=== PATIENT | female | born 1975 | race Hispanic/Latino ===

== ENCOUNTER → 2022-04-04 14:03 | Outpatient (CLI) | payer MEDICARE, MEDICAID, SELFPAY | PROVIDERS: PCP Physician Assistant Medical; Referring Provider Podiatrist; Visit Provider Family Medicine | DX: E11.621 Type 2 diabetes mellitus with foot ulcer (principal); L97.522 Non-pressure chronic ulcer of other part of left foot with fat layer exposed; L97.524 Non-pressure chronic ulcer of other part of left foot with necrosis of bone; L97.512 Non-pressure chronic ulcer of other part of right foot with fat layer exposed; M86.272 Subacute osteomyelitis, left ankle and foot; E11.40 Type 2 diabetes mellitus with diabetic neuropathy, unspecified; Z87.891 Personal history of nicotine dependence; Z79.4 Long term (current) use of insulin; Z79.84 Long term (current) use of oral hypoglycemic drugs | CPT/HCPCS: 11042; 87070; 87075; 87205; 99204; 99213 ==

== ENCOUNTER → 2022-04-05 12:28 | Outpatient (CLI) | payer MEDICARE, MEDICAID, SELFPAY ==
[2022-04-05 14:00] LABS: Add Manual Diff / Slide Review NO; Basophils Absolute Auto 100 /uL (0-100); Basophils Percent Auto 1.2 % (0-2); Eosinophils Absolute Auto 400 /uL (0-450); Eosinophils Percent Auto 4.8 % (2-4); Hematocrit 33.5 % (36-46); Hemoglobin 11.4 g/dL (12.0-16.0); Lymphocytes Absolute Auto 2900 /uL (1100-4500); Lymphocytes Percent Auto 31.3 % (25-40); Mean Corpuscular HGB Conc 33.9 % (30-36); Mean Corpuscular Hemoglobin 27.6 PG (26-34); Mean Corpuscular Volume 81.4 fL (80-100); Monocytes Absolute Auto 500 /uL (0-900); Monocytes Percent Auto 4.9 % (3-14); Neutrophils Absolute Auto 5400 /uL (1500-7000); Neutrophils Percent Auto 57.8 % (50-75); Platelet Count 318 X10^3/uL (150-400); Red Blood Cell Count 4.11 X10^6/uL (4.0-5.2); Red Cell Distribution Width 13.6 % (11.6-14.8); White Blood Cell Count 9.3 X10^3/uL (4.5-11.0)
[2022-04-05 14:44] LABS: Erythrocyte Sedimentation Rate 80 MM/HR (0-20)
[2022-04-05 15:45] LABS: Alanine Aminotransferase 48 IU/L (<35); Alkaline Phosphatase 99 U/L (38-126); Aspartate Aminotransferase 43 IU/L (14-36); BUN Creatinine Ratio 18.3 (6-22); Bilirubin Total 0.3 mg/dL (0.2-1.3); Blood Urea Nitrogen 19 mg/dL (7-17); Carbon Dioxide 30 mmol/L (22-32); Chloride 105 mmol/L (98-107); Estimated Glomerular Filt Rate > 60 mL/min (>60); Glucose 195 mg/dL (70-100); HEMOLYSIS < 15 (0-50); Potassium 4.2 mmol/L (3.4-5.1); Sodium 140 mmol/L (137-145)
[2022-04-05 16:21] LABS: Hemoglobin A1C% w Est Avg Glu 10.2 % (4.0-6.0)
== END ==
PROVIDERS: PCP Physician Assistant Medical; Referring Provider Family Medicine; Visit Provider Family Medicine
DX: L08.9 Local infection of the skin and subcutaneous tissue, unspecified (principal)
CPT/HCPCS: 36415; 80053; 83036; 85025; 85651; 86140

== ENCOUNTER → 2022-04-16 14:05 | Outpatient (CLI) | payer MEDICARE, MEDICAID, SELFPAY | PROVIDERS: PCP Physician Assistant Medical; Referring Provider Podiatrist; Visit Provider Family Medicine | DX: E11.621 Type 2 diabetes mellitus with foot ulcer (principal); L97.522 Non-pressure chronic ulcer of other part of left foot with fat layer exposed; E11.40 Type 2 diabetes mellitus with diabetic neuropathy, unspecified | CPT/HCPCS: 11042; 99213 ==

== ENCOUNTER → 2022-04-23 14:48 | Outpatient (CLI) | payer MEDICARE, MEDICAID, SELFPAY | PROVIDERS: PCP Physician Assistant Medical; Referring Provider Physician Assistant Medical; Visit Provider Family Medicine | DX: E11.621 Type 2 diabetes mellitus with foot ulcer (principal); L97.522 Non-pressure chronic ulcer of other part of left foot with fat layer exposed | CPT/HCPCS: 99213 ==

== ENCOUNTER → 2022-04-30 13:33 | Outpatient (CLI) | payer MEDICARE, MEDICAID, SELFPAY | PROVIDERS: PCP Physician Assistant Medical; Referring Provider Physician Assistant Medical; Visit Provider Family Medicine | DX: E11.621 Type 2 diabetes mellitus with foot ulcer (principal); L97.522 Non-pressure chronic ulcer of other part of left foot with fat layer exposed; E11.40 Type 2 diabetes mellitus with diabetic neuropathy, unspecified; F17.210 Nicotine dependence, cigarettes, uncomplicated; D64.9 Anemia, unspecified | CPT/HCPCS: 97597 ==

== ENCOUNTER → 2022-05-06 14:58 | Outpatient (CLI) | payer MEDICARE, MEDICAID, SELFPAY | PROVIDERS: PCP Physician Assistant Medical; Referring Provider Physician Assistant Medical; Visit Provider Family Medicine | DX: E11.621 Type 2 diabetes mellitus with foot ulcer (principal); L97.522 Non-pressure chronic ulcer of other part of left foot with fat layer exposed; E11.42 Type 2 diabetes mellitus with diabetic polyneuropathy; Z87.891 Personal history of nicotine dependence; R20.9 Unspecified disturbances of skin sensation | CPT/HCPCS: 97597; 99213 ==

== ENCOUNTER → 2022-05-13 14:05 | Outpatient (CLI) | payer MEDICARE, MEDICAID, SELFPAY | PROVIDERS: PCP Physician Assistant Medical; Referring Provider Physician Assistant Medical; Visit Provider Family Medicine | DX: E11.42 Type 2 diabetes mellitus with diabetic polyneuropathy (principal); Z86.31 Personal history of diabetic foot ulcer | CPT/HCPCS: 99212 ==

== ENCOUNTER 2022-09-24 18:28 | Emergency (ER) | payer MEDICARE, MEDICAID, SELFPAY ==
[2022-09-24] VITALS (24 sets, daily range): BP systolic 82–132; BP diastolic 53–69; PULSE 93–107; RESP 17–24; TEMP 36.6; O2SAT 93–97; BMI 28.1
--- NOTE | 2022-09-24 19:22 | ED_ITS ---
HPI - Abdominal Pain General Chief Complaint: Abdominal Pain Stated Complaint: constipated for 3 days, not sleeping Time Seen by Provider: 09/24/22 19:18 Source: patient Mode of arrival: Family Vehicle History of Present Illness HPI narrative: 47F smoker with history of IDDM presetns with chief complaint of feeling a bit unwell for the past 3 days. She has had constipation for three days and has felt weak and lightheaded and even fell down once. She states she suffered no injury as a consequence of her fall. She denies any change in medications or diet. She is not currently dizzy or lightheaded. She denies any runny nose, sore th roat or cough. She has no chest pain or shortness of breath. She denies vomiting but has been somewhat nauseated. She denies diarrhea but states she is been having difficulty producing urine. Related Data Allergies Allergy/AdvReac Type Severity Reaction Status Date / Time No Known Drug Allergies Allergy Verified 09/24/22 19:10 Review of Systems Review of Systems Narrative: GENERAL: See HPI HEENT: Denies sinus pain, ear pain, sore throat, difficulty swallowing, dizziness. RESPIRATORY: Denies dyspnea, cough, wheezing, hemoptysis, sputum. CARDIOVASCULAR: Denies chest pain, palpitations, orthopnea, edema, GASTROINTESTINAL: See HPI : Denies dysuria, frequency, incontinence, hematuria, urinary retention. MUSCULOSKELETAL: denies weakness, joint pain, or bony pain SKIN: Denies rash, skin lesions, or other NEUROLOGIC: See HPI PSYCHIATRIC: No concerning psychosocial issues. 12 point review of systems is negative except for those stated above Patient History Social History Smoking Status: Current every day smoker Smoking Status: Current every day smoker tobacco type: cigarettes Substance Use Type: does not use Exam Narrative Exam Narrative: GENERAL: [47] year old patient appears older than stated age. Well-developed patient, in mild distress. Appears to feel unwell HEAD: Atraumatic. Normocephalic. EYES: Pupils equal round and reactive. Extraocular motions intact. No scleral icterus. No injection or drainage. ENT: Nose without bleeding, purulent drainage. Throat without erythema, tonsillar hypertrophy or exudate. Airway patent. NECK: Trachea midline. Non tender CARDIOVASCULAR: Regular rate and rhythm without murmurs, gallops, or rubs. RESPIRATORY: Clear to auscultation. Breath sounds equal bilaterally. No wheezes, rales, or rhonchi. GASTROINTESTINAL: Abdomen soft, slight generalized tenderness, bowel sounds present. EXTREMITIES: No edema or joint tenderness. BACK: Nontender without deformity or crepitance. No flank tenderness. NEURO: AOx3. SKIN: No rash or erythema of visible areas Initial Vital Signs Initial Vital Signs: Vital Signs Temperature 97.8 F 09/24/22 19:06 Pulse Rate 101 H 09/24/22 19:06 Respiratory Rate 20 09/24/22 19:06 Blood Pressure 82/53 L 09/24/22 19:06 Pulse Oximetry 97 09/24/22 19:06 Oxygen Delivery Method 09/24/22 19:06 Course Course Course Narrative: urinary retention noted, sandoval placed, 1400mL urine out, patient with signific ant improvement in pain Orders Ordered: ED Orders 09/24/22 19:05 C-Reactive Protein Quant Stat Complete Blood Count AUTO DIFF Stat Comprehensive Metabolic Panel Stat Erythrocyte Sedimentation Rate Stat Ethanol (ETOH) Stat Lactate (Lactic Acid) Stat Lipase Stat Lipase Stat Magnesium Stat NT-proBNP (BNP-Adult 18+) Stat Prothrombin Time INR Stat Troponin & CK Cardiac Panel Stat 09/24/22 19:22 XR acute abdomen series Stat EKG-12 Lead Stat 09/24/22 19:51 Test Serum,Qual Stat 09/24/22 20:21 CT chest abd pel w con Stat 09/24/22 20:53 Blood Culture Stat 09/24/22 21:40 Urinalysis and Microscopic Stat Urine Drug Screen, Rapid Stat Discontinued Medications Sodium Chloride (Normal Saline 0.9%) 1,000 mls @ 1,000 mls/hr IV BOLUS ONE Stop: 09/24/22 21:21 Last Infusion: 09/24/22 21:22 Dose: 0 mls/hr Documented By: Admin: 09/24/22 20:29 Dose: 1,000 mls/hr Documented By: AKILAH Ondansetron HCl (Ondansetron 4 Mg Odt) 4 mg PO NOW PRN PRN Reason: Nausea And Vomiting Ondansetron HCl (Ondansetron 4 Mg/2 Ml Inj) 4 mg IV NOW PRN PRN Reason: Nausea And Vomiting Vital Signs Vital signs: Vital Signs - 8 hr 09/24/22 19:20 09/24/22 19:21 09/24/22 19:25 Pulse Rate 103 H 100 H Respiratory Rate 19 Blood Pressure 110/64 Pulse Oximetry 96 93 Oxygen Delivery Method Room Air 09/24/22 19:25 09/24/22 19:30 09/24/22 19:30 Pulse Rate 101 H Respiratory Rate 23 Blood Pressure 114/58 L 115/61 Pulse Oximetry 94 Oxygen Delivery Method 09/24/22 19:35 09/24/22 19:35 09/24/22 19:40 Pulse Rate 103 H Respiratory Rate 22 Blood Pressure 120/66 111/60 Pulse Oximetry 93 Oxygen Delivery Method 09/24/22 19:40 09/24/22 19:56 09/24/22 20:00 Pulse Rate 104 H 105 H 102 H Respiratory Rate 24 20 Blood Pressure Pulse Oximetry 94 95 95 Oxygen Delivery Method 09/24/22 20:15 09/24/22 20:28 09/24/22 20:28 Pulse Rate 102 H 100 H Respiratory Rate 20 17 Blood Pressure 103/69 Pulse Oximetry 96 96 Oxygen Delivery Method Room Air 09/24/22 20:30 09/24/22 20:30 09/24/22 20:35 Pulse Rate 101 H 104 H Respiratory Rate 22 22 Blood Pressure 118/63 Pulse Oximetry 95 95 Oxygen Delivery Method 09/24/22 20:35 09/24/22 20:40 09/24/22 20:40 Pulse Rate 104 H Respiratory Rate 21 Blood Pressure 119/66 121/66 Pulse Oximetry 95 Oxygen Delivery Method 09/24/22 20:45 09/24/22 20:45 09/24/22 21:00 Pulse Rate 107 H 105 H Respiratory Rate 22 21 Blood Pressure 119/64 Pulse Oximetry 95 96 Oxygen Delivery Method 09/24/22 21:15 09/24/22 21:37 09/24/22 21:38 Pulse Rate 101 H 100 H 99 H Respiratory Rate 20 20 Blood Pressure Pulse Oximetry 97 97 96 Oxygen Delivery Method Room Air 09/24/22 21:38 09/24/22 21:45 09/24/22 22:00 Pulse Rate 99 H Respiratory Rate 20 Blood Pressure 132/66 115/56 L Pulse Oximetry 96 Oxygen Delivery Method 09/24/22 22:00 09/24/22 22:15 09/24/22 22:30 Pulse Rate 94 H 96 H 93 H Respiratory Rate 20 18 20 Blood Pressure Pulse Oximetry 96 96 95 Oxygen Delivery Method 09/24/22 22:31 09/24/22 22:31 Pulse Rate 93 H Respiratory Rate 20 Blood Pressure 101/54 L Pulse Oximetry 95 Oxygen Delivery Method MDM - Abdominal Pain Lab Data 09/24/22 19:05 09/24/22 19:05 Labs: Lab Results 09/24/22 09/24/22 09/24/22 Range/Units 19:05 19:05 19:05 WBC 16.0 H (4.5-11.0) X10^3/uL RBC 4.40 (4.0-5.2) X10^6/uL Hgb 12.4 (12.0-16.0) g/dL Hct 36.8 (36-46) % MCV 83.5 (80-100) fL MCH 28.1 (26-34) PG MCHC 33.7 (30-36) % RDW 12.9 (11.6-14.8) % Plt Count 381 (150-400) X10^3/uL Neut % (Auto) 72.8 (50-75) % Lymph % (Auto) 20.6 L (25-40) % Brantley % (Auto) 5.1 (3-14) % Eos % (Auto) 0.8 L (2-4) % Baso % (Auto) 0.7 (0-2) % Neut # (Auto) 84461 H (4508-8374) /uL Lymph # (Auto) 3300 (6252-1507) /uL Brantley # (Auto) 800 (0-900) /uL Eos # (Auto) 100 (0-450) /uL Baso # (Auto) 100 (0-100) /uL ESR 81 H (0-20) MM/HR PT (10.1-12.7) SECONDS INR (0.9-1.3) Sodium 139 (137-145) mmol/L Potassium 4.6 (3.4-5.1) mmol/L Chloride 102 (98-107) mmol/L Carbon Dioxide 28 (22-32) mmol/L BUN 25 H (7-17) mg/dL Creatinine 0.99 (0.52-1.04) mg/dL Estimated GFR > 60 (>60) mL/min BUN/Creatinine Ratio 25.3 H (6-22) Glucose 120 H (70-100) mg/dL Lactate (0.7-2.1) mmol/L Calcium 9.1 (8.4-10.2) mg/dL Magnesium (1.6-2.3) mg/dL Total Bilirubin 0.7 (0.2-1.3) mg/dL AST 27 (14-36) IU/L ALT 24 (<35) IU/L Alkaline Phosphatase 138 H (38-126) U/L Total Creatine Kinase (30-135) U/L CK-MB (CK-2) CK-MB (CK-2) Rel Index Troponin I (0.01-0.034) ng/mL C-Reactive Protein (<1.0) mg/dL NT-Pro-B Natriuret Pep (<125) pg/mL Total Protein 8.4 H (6.3-8.2) g/dL Albumin 4.2 (3.5-5.0) g/dL Globulin 4.2 H (1.7-4.1) g/dL Albumin/Globulin Ratio 1.0 (1.0-2.8) Lipase 186 (23-300) U/L Serum , Qual (Negative) Urine Color Urine Appearance Urine pH (4.5-8.0) Ur Specific Sandwich (1.000-1.035) Urine Protein (Negative) Urine Glucose (UA) (Negative) g/dL Urine Ketones (NEGATIVE) Urine Occult Blood (Negative) Urine Nitrate (Negative) Urine Bilirubin (NEGATIVE) Urine Urobilinogen (0.2) E.U./dL Ur Leukocyte Esterase (NEGATIVE) Urine RBC (0-5/HPF) Urine WBC (0-5/HPF) Ur Squamous Epith Cells (0-5/HPF) Urine Bacteria (None) Ur Culture Indicated? U Opiates 300ng/mL cut (Negative) Ur Oxycodone Screen (Negative) Urine Methadone Screen (Negative) Ur Barbiturates Screen (Negative) U Tricyclic Antidepress (Negative) Ur Phencyclidine Scrn (Negative) Ur Amphetamines Screen (Negative) U Methamphetamines Scrn (Negative) Ur MDMA Scrn (Ecstasy) (Negative) U Benzodiazepines Scrn (Negative) Urine Cocaine Screen (Negative) U Marijuana (THC) Screen (Negative) Ethyl Alcohol ( - 10) mg/dL 09/24/22 09/24/22 09/24/22 Range/Units 19:05 19:05 19:05 WBC (4.5-11.0) X10^3/uL RBC (4.0-5.2) X10^6/uL Hgb (12.0-16.0) g/dL Hct (36-46) % MCV (80-100) fL MCH (26-34) PG MCHC (30-36) % RDW (11.6-14.8) % Plt Count (150-400) X10^3/uL Neut % (Auto) (50-75) % Lymph % (Auto) (25-40) % Brantley % (Auto) (3-14) % Eos % (Auto) (2-4) % Baso % (Auto) (0-2) % Neut # (Auto) (0664-9064) /uL Lymph # (Auto) (9856-7896) /uL Brantley # (Auto) (0-900) /uL Eos # (Auto) (0-450) /uL Baso # (Auto) (0-100) /uL ESR (0-20) MM/HR PT 12.7 (10.1-12.7) SECONDS INR 1.1 (0.9-1.3) Sodium (137-145) mmol/L Potassium (3.4-5.1) mmol/L Chloride (98-107) mmol/L Carbon Dioxide (22-32) mmol/L BUN (7-17) mg/dL Creatinine (0.52-1.04) mg/dL Estimated GFR (>60) mL/min BUN/Creatinine Ratio (6-22) Glucose (70-100) mg/dL Lactate 1.2 (0.7-2.1) mmol/L Calcium (8.4-10.2) mg/dL Magnesium 2.2 (1.6-2.3) mg/dL Total Bilirubin (0.2-1.3) mg/dL AST (14-36) IU/L ALT (<35) IU/L Alkaline Phosphatase (38-126) U/L Total Creatine Kinase (30-135) U/L CK-MB (CK-2) CK-MB (CK-2) Rel Index Troponin I (0.01-0.034) ng/mL C-Reactive Protein 2.3 H (<1.0) mg/dL NT-Pro-B Natriuret Pep 59 (<125) pg/mL Total Protein (6.3-8.2) g/dL Albumin (3.5-5.0) g/dL Globulin (1.7-4.1) g/dL Albumin/Globulin Ratio (1.0-2.8) Lipase 185 (23-300) U/L Serum , Qual (Negative) Urine Color Urine Appearance Urine pH (4.5-8.0) Ur Specific Sandwich (1.000-1.035) Urine Protein (Negative) Urine Glucose (UA) (Negative) g/dL Urine Ketones (NEGATIVE) Urine Occult Blood (Negative) Urine Nitrate (Negative) Urine Bilirubin (NEGATIVE) Urine Urobilinogen (0.2) E.U./dL Ur Leukocyte Esterase (NEGATIVE) Urine RBC (0-5/HPF) Urine WBC (0-5/HPF) Ur Squamous Epith Cells (0-5/HPF) Urine Bacteria (None) Ur Culture Indicated? U Opiates 300ng/mL cut (Negative) Ur Oxycodone Screen (Negative) Urine Methadone Screen (Negative) Ur Barbiturates Screen (Negative) U Tricyclic Antidepress (Negative) Ur Phencyclidine Scrn (Negative) Ur Amphetamines Screen (Negative) U Methamphetamines Scrn (Negative) Ur MDMA Scrn (Ecstasy) (Negative) U Benzodiazepines Scrn (Negative) Urine Cocaine Screen (Negative) U Marijuana (THC) Screen (Negative) Ethyl Alcohol ( - 10) mg/dL 09/24/22 09/24/22 09/24/22 Range/Units 19:05 19:05 19:51 WBC (4.5-11.0) X10^3/uL RBC (4.0-5.2) X10^6/uL Hgb (12.0-16.0) g/dL Hct (36-46) % MCV (80-100) fL MCH (26-34) PG MCHC (30-36) % RDW (11.6-14.8) % Plt Count (150-400) X10^3/uL Neut % (Auto) (50-75) % Lymph % (Auto) (25-40) % Brantley % (Auto) (3-14) % Eos % (Auto) (2-4) % Baso % (Auto) (0-2) % Neut # (Auto) (9509-7342) /uL Lymph # (Auto) (8756-9617) /uL Brantley # (Auto) (0-900) /uL Eos # (Auto) (0-450) /uL Baso # (Auto) (0-100) /uL ESR (0-20) MM/HR PT (10.1-12.7) SECONDS INR (0.9-1.3) Sodium (137-145) mmol/L Potassium (3.4-5.1) mmol/L Chloride (98-107) mmol/L Carbon Dioxide (22-32) mmol/L BUN (7-17) mg/dL Creatinine (0.52-1.04) mg/dL Estimated GFR (>60) mL/min BUN/Creatinine Ratio (6-22) Glucose (70-100) mg/dL Lactate (0.7-2.1) mmol/L Calcium (8.4-10.2) mg/dL Magnesium (1.6-2.3) mg/dL Total Bilirubin (0.2-1.3) mg/dL AST (14-36) IU/L ALT (<35) IU/L Alkaline Phosphatase (38-126) U/L Total Creatine Kinase 45 (30-135) U/L CK-MB (CK-2) TNP CK-MB (CK-2) Rel Index TNP Troponin I < 0.012 (0.01-0.034) ng/mL C-Reactive Protein (<1.0) mg/dL NT-Pro-B Natriuret Pep (<125) pg/mL Total Protein (6.3-8.2) g/dL Albumin (3.5-5.0) g/dL Globulin (1.7-4.1) g/dL Albumin/Globulin Ratio (1.0-2.8) Lipase (23-300) U/L Serum , Qual Negative (Negative) Urine Color Urine Appearance Urine pH (4.5-8.0) Ur Specific Sandwich (1.000-1.035) Urine Protein (Negative) Urine Glucose (UA) (Negative) g/dL Urine Ketones (NEGATIVE) Urine Occult Blood (Negative) Urine Nitrate (Negative) Urine Bilirubin (NEGATIVE) Urine Urobilinogen (0.2) E.U./dL Ur Leukocyte Esterase (NEGATIVE) Urine RBC (0-5/HPF) Urine WBC (0-5/HPF) Ur Squamous Epith Cells (0-5/HPF) Urine Bacteria (None) Ur Culture Indicated? U Opiates 300ng/mL cut (Negative) Ur Oxycodone Screen (Negative) Urine Methadone Screen (Negative) Ur Barbiturates Screen (Negative) U Tricyclic Antidepress (Negative) Ur Phencyclidine Scrn (Negative) Ur Amphetamines Screen (Negative) U Methamphetamines Scrn (Negative) Ur MDMA Scrn (Ecstasy) (Negative) U Benzodiazepines Scrn (Negative) Urine Cocaine Screen (Negative) U Marijuana (THC) Screen (Negative) Ethyl Alcohol < 10 ( - 10) mg/dL 09/24/22 09/24/22 Range/Units 21:40 21:40 WBC (4.5-11.0) X10^3/uL RBC (4.0-5.2) X10^6/uL Hgb (12.0-16.0) g/dL Hct (36-46) % MCV (80-100) fL MCH (26-34) PG MCHC (30-36) % RDW (11.6-14.8) % Plt Count (150-400) X10^3/uL Neut % (Auto) (50-75) % Lymph % (Auto) (25-40) % Brantley % (Auto) (3-14) % Eos % (Auto) (2-4) % Baso % (Auto) (0-2) % Neut # (Auto) (6459-3101) /uL Lymph # (Auto) (3232-2142) /uL Brantley # (Auto) (0-900) /uL Eos # (Auto) (0-450) /uL Baso # (Auto) (0-100) /uL ESR (0-20) MM/HR PT (10.1-12.7) SECONDS INR (0.9-1.3) Sodium (137-145) mmol/L Potassium (3.4-5.1) mmol/L Chloride (98-107) mmol/L Carbon Dioxide (22-32) mmol/L BUN (7-17) mg/dL Creatinine (0.52-1.04) mg/dL Estimated GFR (>60) mL/min BUN/Creatinine Ratio (6-22) Glucose (70-100) mg/dL Lactate (0.7-2.1) mmol/L Calcium (8.4-10.2) mg/dL Magnesium (1.6-2.3) mg/dL Total Bilirubin (0.2-1.3) mg/dL AST (14-36) IU/L ALT (<35) IU/L Alkaline Phosphatase (38-126) U/L Total Creatine Kinase (30-135) U/L CK-MB (CK-2) CK-MB (CK-2) Rel Index Troponin I (0.01-0.034) ng/mL C-Reactive Protein (<1.0) mg/dL NT-Pro-B Natriuret Pep (<125) pg/mL Total Protein (6.3-8.2) g/dL Albumin (3.5-5.0) g/dL Globulin (1.7-4.1) g/dL Albumin/Globulin Ratio (1.0-2.8) Lipase (23-300) U/L Serum , Qual (Negative) Urine Color Yellow Urine Appearance Clear Urine pH 5.5 (4.5-8.0) Ur Specific Sandwich 1.025 (1.000-1.035) Urine Protein Trace H (Negative) Urine Glucose (UA) Negative (Negative) g/dL Urine Ketones Negative (NEGATIVE) Urine Occult Blood Negative (Negative) Urine Nitrate Negative (Negative) Urine Bilirubin Negative (NEGATIVE) Urine Urobilinogen 0.2 (0.2) E.U./dL Ur Leukocyte Esterase Negative (NEGATIVE) Urine RBC 0-1/hpf (0-5/HPF) Urine WBC 0-1/hpf (0-5/HPF) Ur Squamous Epith Cells 0-1 /hpf (0-5/HPF) Urine Bacteria None seen (None) Ur Culture Indicated? Cult not indicated U Opiates 300ng/mL cut Negative (Negative) Ur Oxycodone Screen Negative (Negative) Urine Methadone Screen Negative (Negative) Ur Barbiturates Screen Negative (Negative) U Tricyclic Antidepress Negative (Negative) Ur Phencyclidine Scrn Negative (Negative) Ur Amphetamines Screen Negative (Negative) U Methamphetamines Scrn Negative (Negative) Ur MDMA Scrn (Ecstasy) Negative (Negative) U Benzodiazepines Scrn Negative (Negative) Urine Cocaine Screen Negative (Negative) U Marijuana (THC) Screen Negative (Negative) Ethyl Alcohol ( - 10) mg/dL Imaging Data Abdominal x-ray: Radiologist's Impression: [address] [address] XRay Report Signed Patient: Maryanne Amado MR#: [id number] : 1975 Acct:[id number] Age/Sex: 47 / F Date of Service: 09/24/22 Loc: ED Accession Number: [id number] ?? Procedure: XR acute abdomen series Ordering Provider: Westley Rodriguez D.O. PROCEDURE:? XR ACUTE ABDOMEN SERIES ? INDICATIONS:? Abdominal pain ? TECHNIQUE:? One view chest and two views of the abdomen were acquired.? ? COMPARISON:? None. ? FINDINGS:? ? Surgical changes and devices:? None.? ? Chest:? Lungs are clear.? Heart size is normal.? No pleural effusions.? No pneumoperitoneum.? ? Abdomen:? There is a large amount of stool in left colon.? Bowel gas pattern is normal.? No suspicious calcifications.? Visualized solid organ contours appear normal.? ? Bones:? No suspicious bony lesions.? ? IMPRESSION:? ? 1. A large amount of stool in left colon suggesting severe constipation. ? ? Dictated by: Milton Harrell M.D. on 09/24/2022 at 20:00 ? ? Approved by: Milton Harrell M.D. on 09/24/2022 at 20:01 ? MDM Narrative Medical decision making narrative: CC: 47F presents with decreased bowel movements for the past few days Complicating co-morbidities: None known Data collected from: Patient Medical records reviewed: None available in our EMR Differential considered, but not limited to: Bowel obstruction, kidney stone, appendicitis, urine infection versus other Exam documented above, pertinent findings include: Abdominal fullness and generalized tenderness but no peritoneal signs, rebound or guarding. Bowel sounds present. Lab Test results independently reviewed as above. Pertinent findings: Elevated white blood cell count of unclear significance, patient has no fever or other signs of infection. No signs of anemia. Electrolytes and renal function within normal range. Inflammatory markers elevated, unclear significance. Independently reviewed EKG as above Imaging studies independently reviewed: Large stool burden, no sign of obstruction Treatments: Zofran and fluids as well as Sandoval catheter placement, patient has significant if not complete resolution of symptoms after the steps Re-evaluations: See above Discussion: 47-year-old female with a few days of decreased bowel movements, abdominal cramping had trouble urinating. She is found to have urinary retention with postvoid residual measuring greater than 1 L on ultrasound, Sandoval catheter placed at 1400 cc out. Patient with tremendous improvement after this step. Imaging suggest large stool burden but no other significant findings suc h as obstruction, pneumonia or other. Patient given extensive discussion regarding return precautions, as well as treatment of constipation. She has had questions answered to her apparent satisfaction Disposition: see below, along with detailed discharge instructions that have been reviewed with patient as well as indications for ED re-evaluation and additional outpatient follow up Discharge Plan Departure Patient Disposition: Home Clinical Impression: Abdominal pain, Constipation, Acute urinary retention Instructions: DI for Constipation, DI for Urinary Retention in Women Activity Restrictions/Additional Instructions: *You have been diagnosed with [ abdominal pain due to constipation and associated urinary retention. As we discussed your labs are very reassuring and imaging demonstrates constipation but no signs of bowel obstruction, infection or other significant abnormality.] *What to do: *Take over the counter medications as directed: 1. Metamucil - is a bulk forming laxative and adds fiber 2. Colace - softens your stool 3. Dulcolax suppository - stimulates your bowels *Follow up with your primary care provider in 2-3 days, call for appointment * also, as we discussed you will have the urinary catheter in place for the next few days, I have given you contact information for the local urology office, please call tomorrow, let them know you were seen in the emergency department and we would like you seen in follow-up. Traditionally they will see you in the office and remove the catheter there, observed for few hours and ensure that you can urinate on her own and then send you home *Return to ER if you should have any new, worsening or concerning symptoms *Drink plenty of water and eat foods high in fiber *Stay as active as you can as this helps move your bowels as well Referrals: Gena Weiner MD [Physician] - Yolande Oneal PA-C [Primary Care Provider] - Stand Alone Forms: Patient Portal/API
--- NOTE | 2022-09-24 19:22 | DI.RAD.S_ITS ---
PROCEDURE: XR ACUTE ABDOMEN SERIES INDICATIONS: Abdominal pain TECHNIQUE: One view chest and two views of the abdomen were acquired. COMPARISON: None. FINDINGS: Surgical changes and devices: None. Chest: Lungs are clear. Heart size is normal. No pleural effusions. No pneumoperitoneum. Abdomen: There is a large amount of stool in left colon. Bowel gas pattern is normal. No suspicious calcifications. Visualized solid organ contours appear normal. Bones: No suspicious bony lesions. IMPRESSION: 1. A large amount of stool in left colon suggesting severe constipation. Dictated by: Milton Harrell M.D. on 09/24/2022 at 20:00 Approved by: Milton Harrell M.D. on 09/24/2022 at 20:01
[2022-09-24 19:34] LABS: Add Manual Diff / Slide Review NO; Basophils Absolute Auto 100 /uL (0-100); Basophils Percent Auto 0.7 % (0-2); Eosinophils Absolute Auto 100 /uL (0-450); Eosinophils Percent Auto 0.8 % (2-4); Hematocrit 36.8 % (36-46); Hemoglobin 12.4 g/dL (12.0-16.0); Lymphocytes Absolute Auto 3300 /uL (1100-4500); Lymphocytes Percent Auto 20.6 % (25-40); Mean Corpuscular HGB Conc 33.7 % (30-36); Mean Corpuscular Hemoglobin 28.1 PG (26-34); Mean Corpuscular Volume 83.5 fL (80-100); Monocytes Absolute Auto 800 /uL (0-900); Monocytes Percent Auto 5.1 % (3-14); Neutrophils Absolute Auto 11700 /uL (1500-7000); Neutrophils Percent Auto 72.8 % (50-75); Platelet Count 381 X10^3/uL (150-400); Red Cell Distribution Width 12.9 % (11.6-14.8)
[2022-09-24 19:42] LABS: INR 1.1 (0.9-1.3); Prothrombin Time 12.7 SECONDS (10.1-12.7)
[2022-09-24 19:55] LABS: Alanine Aminotransferase 24 IU/L (<35); Albumin 4.2 g/dL (3.5-5.0); Alkaline Phosphatase 138 U/L (38-126); Aspartate Aminotransferase 27 IU/L (14-36); BUN Creatinine Ratio 25.3 (6-22); Bilirubin Total 0.7 mg/dL (0.2-1.3); Blood Urea Nitrogen 25 mg/dL (7-17); Calcium 9.1 mg/dL (8.4-10.2); Carbon Dioxide 28 mmol/L (22-32); Chloride 102 mmol/L (98-107); Estimated Glomerular Filt Rate > 60 mL/min (>60); Globulin 4.2 g/dL (1.7-4.1); Glucose 120 mg/dL (70-100); HEMOLYSIS 21 (0-50); Lipase 186 U/L (23-300); Potassium 4.6 mmol/L (3.4-5.1); Sodium 139 mmol/L (137-145); Total Protein 8.4 g/dL (6.3-8.2)
[2022-09-24 19:56] LABS: Creatine Kinase 45 U/L (30-135); Lactate (Lactic Acid) 1.2 mmol/L (0.7-2.1)
[2022-09-24 19:57] LABS: Ethanol (ETOH) < 10 mg/dL
[2022-09-24 19:59] LABS: C-Reactive Protein Quant 2.3 mg/dL (<1.0); Lipase 185 U/L (23-300); Magnesium 2.2 mg/dL (1.6-2.3)
[2022-09-24 20:03] LABS: NT-proBNP (BNP-Adult 18+) 59 pg/mL (<125)
[2022-09-24 20:04] LABS: Erythrocyte Sedimentation Rate 81 MM/HR (0-20)
[2022-09-24 20:07] LABS: Troponin I < 0.012 ng/mL (0.01-0.034)
--- NOTE | 2022-09-24 20:21 | DI.CT.S_ITS ---
PROCEDURE: CT CHEST ABD PEL W CON INDICATIONS: syncope, abdominal pain, ill, weakness TECHNIQUE: After the administration of intravenous contrast, axial sections acquired from the supraclavicular neck to the pubic symphysis. Coronal and sagittal reformats were performed. For radiation dose reduction, the following was used: automated exposure control, adjustment of mA and/or kV according to patient size. COMPARISON: [facility], CR, XR ACUTE ABDOMEN SERIES, 09/24/2022, 19:36. FINDINGS: Image quality: Excellent. CHEST: Lower Neck: No lymphadenopathy by size criteria. Thyroid: There are small bilateral thyroid nodules, measuring up to 1.0 cm in the right lobe. Axillae: No lymphadenopathy by size criteria. Chest Wall: Unremarkable. Lungs and Airways: No acute consolidation. There is mild dependent atelectasis bilaterally. The trachea and central airways are patent. Pleura: No pneumothorax or pleural effusions. Heart: Heart size is normal. No pericardial effusion. Thoracic Vessels: The aorta and pulmonary arteries are normal in size. Mediastinum and Brianna: No lymphadenopathy by size criteria. Esophagus: No wall thickening. No hiatal hernia. ABDOMEN: Liver: No mass lesion. Gallbladder: Within normal limits without calcified gallstones. Biliary ducts: No biliary ductal dilatation. Pancreas: Unremarkable. Spleen: Normal in size. Adrenal Glands: No adrenal nodules. Kidneys and Ureters: There is mild fullness of the renal collecting systems and ureters bilaterally extending to the bladder. No obstructing stones visualized. Stomach and Bowel: Stomach and small bowel loops are normal in caliber and wall thickness. The appendix is normal in appearance. There is colonic stool distention in the distal colon including moderate to marked stool distention in the rectum with mild wall thickening and pericolonic fat stranding suggestive of stercoral colitis. Peritoneum: No abnormal intraperitoneal fluid. No free air. Ventral Wall: No hernia. Abdominal Nodes: No retroperitoneal or mesenteric adenopathy by size criteria. Vessels: Aorta and inferior vena cava are normal in size. PELVIS: Pelvic Organs: Unremarkable. Bladder: There is marked distention of the urinary bladder. Pelvic Nodes: No enlarged lymph nodes. Miscellaneous: No inguinal hernias are seen. Bones: Visualized osseous structures demonstrate no suspicious focal lesions. IMPRESSION: 1. Moderate to marked stool distention in the rectum with associated mild wall thickening and pericolonic fat stranding compatible with stercoral colitis. 2. Associated moderate stool distention demonstrated in the distal colon suggestive of constipation or impaction. No evidence of small-bowel obstruction. 3. Marked bladder distention may reflect urinary tension. 4. Mild fullness of the renal collecting systems and ureters likely secondary to bladder distention. No obstructing stones visualized. Dictated by: Anibal Stoner M.D. on 09/24/2022 at 22:02 Approved by: Anibal Stoner M.D. on 09/24/2022 at 22:08
[2022-09-24] MEDS: SODIUM CHLORIDE 0.9% 1,000 ML 1000 ML IV (20:29)
[2022-09-24 21:12] LABS: Pregnancy Test Serum,Qual Negative (Negative)
[2022-09-24 22:08] LABS: Appearance Urine UA CLEAR; Bilirubin Urine UA NEGATIVE (NEGATIVE); Color Urine UA YELLOW; Glucose Urine UA NEGATIVE (Negative); Ketones Urine UA NEGATIVE (NEGATIVE); Leukocyte Esterase Urine UA NEGATIVE (NEGATIVE); Nitrite Urine UA NEGATIVE (Negative); Occult Blood Urine UA NEGATIVE (Negative); Protein Urine UA TRACE (Negative); Specific Gravity Urine UA 1.025 (1.000-1.035); Urobilinogen Urine UA 0.2 E.U./dL (0.2)
[2022-09-24 22:12] LABS: pH Urine UA 5.5 (4.5-8.0)
[2022-09-24 22:20] LABS: Bacteria Urine None Seen; Culture Indicated Urine Cult Not Indicated; RBC Urine 0-1/HPF (0-5/HPF); Squamous Epithelial Cell Urine 0-1 /HPF (0-5/HPF); WBC Urine 0-1/HPF (0-5/HPF)
[2022-09-24 22:21] LABS: UR Morphine/Opiate cutoff 300 Negative (Negative); Ur Creatinine 20 (Normal); Ur Specific Gravity 1.025 (Normal); Urine Amphetamines Negative (Negative); Urine Barbiturates Negative (Negative); Urine Benzodiazepines Negative (Negative); Urine Cocaine Negative (Negative); Urine MDMA Negative (Negative); Urine Methadone Negative (Negative); Urine Methamphetamines Negative (Negative); Urine Oxycodone Negative (Negative); Urine Phencyclidine Negative (Negative); Urine Tetrahydrocannabinol Negative (Negative); Urine Tricyclic Antidepressant Negative (Negative); Urine pH 5 (Normal)
== END 2022-09-24 22:44 | disposition home or self-care (01) ==
PROVIDERS: Emergency Provider Emergency Medicine; PCP Physician Assistant Medical
DX: R10.9 Unspecified abdominal pain (principal); K59.00 Constipation, unspecified; R33.8 Other retention of urine
CPT/HCPCS: 36415; 71260; 74022; 74177; 80053; 80305; 80320; 81001; 82550; 83605; 83690; 83735; 83880; 84484; 84703; 85025; 85610; 85651; 86140; 87040; 93005; 96360; 99284; Q9967

== ENCOUNTER → 2023-09-05 13:17 | Outpatient (CLI) | payer MEDICARE, MEDICAID, SELFPAY | PROVIDERS: PCP Physician Assistant Medical; Referring Provider Podiatrist Foot & Ankle Surgery; Visit Provider Physician Assistant | DX: E11.621 Type 2 diabetes mellitus with foot ulcer (principal); L97.425 Non-pressure chronic ulcer of left heel and midfoot with muscle involvement without evidence of necrosis; L84 Corns and callosities; R60.0 Localized edema; F17.210 Nicotine dependence, cigarettes, uncomplicated; B95.62 Methicillin resistant Staphylococcus aureus infection as the cause of diseases classified elsewhere; Z79.2 Long term (current) use of antibiotics | CPT/HCPCS: 11042; 87070; 87075; 87186; 87205; 99214 ==

== ENCOUNTER → 2023-09-08 15:13 | Outpatient (CLI) | payer MEDICARE, MEDICAID, SELFPAY | PROVIDERS: PCP Physician Assistant Medical; Referring Provider Podiatrist; Visit Provider Physician Assistant | DX: E11.621 Type 2 diabetes mellitus with foot ulcer (principal); L97.425 Non-pressure chronic ulcer of left heel and midfoot with muscle involvement without evidence of necrosis; L84 Corns and callosities; R60.0 Localized edema; L08.89 Other specified local infections of the skin and subcutaneous tissue | CPT/HCPCS: 99212 ==

== ENCOUNTER → 2023-09-12 09:24 | Outpatient (CLI) | payer MEDICARE, MEDICAID, SELFPAY | PROVIDERS: PCP Physician Assistant Medical; Referring Provider Podiatrist; Visit Provider Physician Assistant | DX: E11.621 Type 2 diabetes mellitus with foot ulcer (principal); L97.425 Non-pressure chronic ulcer of left heel and midfoot with muscle involvement without evidence of necrosis; R60.0 Localized edema; L84 Corns and callosities; L08.89 Other specified local infections of the skin and subcutaneous tissue | CPT/HCPCS: 36415; 83036; 99213 ==

== ENCOUNTER → 2023-09-12 12:07 | Outpatient (CLI) | payer MEDICARE, MEDICAID, SELFPAY | PROVIDERS: PCP Physician Assistant Medical; Referring Provider Physician Assistant; Visit Provider Physician Assistant | DX: E11.621 Type 2 diabetes mellitus with foot ulcer (principal) | CPT/HCPCS: 36415; 83036 ==

== ENCOUNTER → 2023-09-16 12:55 | Outpatient (CLI) | payer MEDICARE, MEDICAID, SELFPAY | PROVIDERS: PCP Physician Assistant Medical; Referring Provider Podiatrist; Visit Provider Surgery | DX: E11.621 Type 2 diabetes mellitus with foot ulcer (principal); L97.422 Non-pressure chronic ulcer of left heel and midfoot with fat layer exposed; L84 Corns and callosities; R60.0 Localized edema | CPT/HCPCS: 99212 ==

== ENCOUNTER → 2023-09-19 13:22 | Outpatient (CLI) | payer MEDICARE, MEDICAID, SELFPAY | PROVIDERS: PCP Physician Assistant Medical; Referring Provider Podiatrist; Visit Provider Physician Assistant | DX: E11.621 Type 2 diabetes mellitus with foot ulcer (principal); L97.422 Non-pressure chronic ulcer of left heel and midfoot with fat layer exposed; L84 Corns and callosities; R60.0 Localized edema; E11.42 Type 2 diabetes mellitus with diabetic polyneuropathy; F25.9 Schizoaffective disorder, unspecified; S91.302A Unspecified open wound, left foot, initial encounter | CPT/HCPCS: 11042; 73630; 99214 ==

== ENCOUNTER → 2023-09-19 14:23 | Outpatient (CLI) | payer MEDICARE, MEDICAID, SELFPAY ==
--- NOTE | 2023-09-19 14:29 | DI.RAD.S_ITS ---
PROCEDURE: XR FOOT LT MIN 3V INDICATIONS: non-healing wound plantar surface of left foot TECHNIQUE: 3 views of the foot were acquired. COMPARISON: [facility], MR, MR FOOT LEFT WITH/WITHOUT CONTRAST, 03/05/2022, 17:12. [facility], CR, XR FOOT 1 OR 2 VIEWS LEFT, 03/06/2022, 10:51. FINDINGS: Bones: No fractures or dislocations. No suspicious bony lesions. Calcaneal spur. There is an appearance of increased sclerosis at the base of the 3rd proximal phalanx, progressive compared to prior exam. Soft tissues: No tibiotalar joint effusion. Achilles tendon appears normal. IMPRESSION: Progressive sclerosis of the 3rd phalanx. This may be sequela of prior infection given appearance on prior MRI. If there is concern for active osteomyelitis, MR is recommended. Dictated by: Nidhi Daigle M.D. on 09/19/2023 at 16:32 Approved by: Nidhi Daigle M.D. on 09/19/2023 at 16:38
== END ==
PROVIDERS: PCP Physician Assistant Medical; Referring Provider Physician Assistant; Visit Provider Physician Assistant
DX: S91.302A Unspecified open wound, left foot, initial encounter (principal)
CPT/HCPCS: 73630

== ENCOUNTER → 2023-09-22 14:16 | Outpatient (CLI) | payer MEDICARE, MEDICAID, SELFPAY | LOC: WC 14:17 | PROVIDERS: PCP Physician Assistant Medical; Referring Provider Podiatrist; Visit Provider Surgery | DX: E11.621 Type 2 diabetes mellitus with foot ulcer (principal); L97.525 Non-pressure chronic ulcer of other part of left foot with muscle involvement without evidence of necrosis; R60.0 Localized edema; L84 Corns and callosities | CPT/HCPCS: 99213 ==

== ENCOUNTER → 2023-09-24 14:24 | Outpatient (CLI) | payer MEDICARE, MEDICAID, SELFPAY | LOC: WC 14:29 | PROVIDERS: PCP Physician Assistant Medical; Referring Provider Nurse Practitioner; Visit Provider Surgery | DX: E11.621 Type 2 diabetes mellitus with foot ulcer (principal); L97.425 Non-pressure chronic ulcer of left heel and midfoot with muscle involvement without evidence of necrosis; L84 Corns and callosities; R60.0 Localized edema | CPT/HCPCS: 99213 ==

== ENCOUNTER → 2023-09-26 13:43 | Outpatient (CLI) | payer MEDICARE, MEDICAID, SELFPAY | LOC: WC 13:44 | PROVIDERS: PCP Physician Assistant Medical; Referring Provider Podiatrist; Visit Provider Physician Assistant | DX: E11.621 Type 2 diabetes mellitus with foot ulcer (principal); L97.425 Non-pressure chronic ulcer of left heel and midfoot with muscle involvement without evidence of necrosis; L84 Corns and callosities; R60.0 Localized edema | CPT/HCPCS: 11042; 99214 ==

== ENCOUNTER → 2023-09-29 14:25 | Outpatient (CLI) | payer MEDICARE, MEDICAID, SELFPAY | LOC: WC 14:26 | PROVIDERS: PCP Physician Assistant Medical; Referring Provider Podiatrist; Visit Provider Surgery | DX: E11.621 Type 2 diabetes mellitus with foot ulcer (principal); L97.525 Non-pressure chronic ulcer of other part of left foot with muscle involvement without evidence of necrosis; R60.0 Localized edema; L84 Corns and callosities | CPT/HCPCS: 99213 ==

== ENCOUNTER → 2023-10-01 14:19 | Outpatient (CLI) | payer MEDICARE, MEDICAID, SELFPAY | LOC: WC 14:20 | PROVIDERS: PCP Physician Assistant Medical; Referring Provider Podiatrist; Visit Provider Surgery | DX: E11.621 Type 2 diabetes mellitus with foot ulcer (principal); L97.422 Non-pressure chronic ulcer of left heel and midfoot with fat layer exposed; L84 Corns and callosities; R60.0 Localized edema | CPT/HCPCS: 99212 ==

== ENCOUNTER → 2023-10-03 15:45 | Outpatient (CLI) | payer MEDICARE, MEDICAID, SELFPAY | PROVIDERS: PCP Physician Assistant Medical; Referring Provider Podiatrist; Visit Provider Physician Assistant | DX: E11.621 Type 2 diabetes mellitus with foot ulcer (principal); E11.42 Type 2 diabetes mellitus with diabetic polyneuropathy; L97.425 Non-pressure chronic ulcer of left heel and midfoot with muscle involvement without evidence of necrosis; L84 Corns and callosities; R60.0 Localized edema; F25.9 Schizoaffective disorder, unspecified | CPT/HCPCS: 11042; 99213 ==

== ENCOUNTER → 2023-10-07 14:44 | Outpatient (CLI) | payer MEDICARE, MEDICAID, SELFPAY | PROVIDERS: PCP Physician Assistant Medical; Referring Provider Podiatrist; Visit Provider Surgery | DX: E11.621 Type 2 diabetes mellitus with foot ulcer (principal); L97.425 Non-pressure chronic ulcer of left heel and midfoot with muscle involvement without evidence of necrosis; L84 Corns and callosities; R60.0 Localized edema | CPT/HCPCS: 99212 ==

== ENCOUNTER → 2023-10-10 13:51 | Outpatient (CLI) | payer MEDICARE, MEDICAID, SELFPAY | LOC: WC 13:52 | PROVIDERS: PCP Physician Assistant Medical; Referring Provider Physician Assistant Medical; Visit Provider Physician Assistant | DX: E11.621 Type 2 diabetes mellitus with foot ulcer (principal); L97.425 Non-pressure chronic ulcer of left heel and midfoot with muscle involvement without evidence of necrosis; L84 Corns and callosities; R60.0 Localized edema; R23.4 Changes in skin texture; E11.40 Type 2 diabetes mellitus with diabetic neuropathy, unspecified; F20.9 Schizophrenia, unspecified | CPT/HCPCS: 11042; 99213 ==

== ENCOUNTER → 2023-10-14 14:50 | Outpatient (CLI) | payer MEDICARE, MEDICAID, SELFPAY | LOC: WC 14:50 | PROVIDERS: PCP Physician Assistant Medical; Referring Provider Physician Assistant Medical; Visit Provider Surgery | DX: E11.621 Type 2 diabetes mellitus with foot ulcer (principal); L97.425 Non-pressure chronic ulcer of left heel and midfoot with muscle involvement without evidence of necrosis; L84 Corns and callosities; R60.0 Localized edema | CPT/HCPCS: 99213 ==

== ENCOUNTER → 2023-10-17 14:51 | Outpatient (CLI) | payer MEDICARE, MEDICAID, SELFPAY | PROVIDERS: PCP Physician Assistant Medical; Referring Provider Podiatrist; Visit Provider Surgery | DX: E11.621 Type 2 diabetes mellitus with foot ulcer (principal); E11.42 Type 2 diabetes mellitus with diabetic polyneuropathy; L97.425 Non-pressure chronic ulcer of left heel and midfoot with muscle involvement without evidence of necrosis; L84 Corns and callosities; F25.9 Schizoaffective disorder, unspecified; R60.0 Localized edema | CPT/HCPCS: 11042; 99213 ==

== ENCOUNTER → 2023-10-21 15:56 | Outpatient (CLI) | payer MEDICARE, MEDICAID, SELFPAY | LOC: WC 15:57 | PROVIDERS: PCP Physician Assistant Medical; Referring Provider Podiatrist; Visit Provider Surgery | DX: E11.621 Type 2 diabetes mellitus with foot ulcer (principal); L97.425 Non-pressure chronic ulcer of left heel and midfoot with muscle involvement without evidence of necrosis; L84 Corns and callosities; R60.0 Localized edema | CPT/HCPCS: 99212 ==

== ENCOUNTER → 2024-02-03 11:59 | Outpatient (CLI) | payer MEDICARE, MEDICAID, SELFPAY | LOC: WC 12:00 | PROVIDERS: PCP Physician Assistant Medical; Referring Provider Physician Assistant Medical; Visit Provider Surgery | DX: E11.621 Type 2 diabetes mellitus with foot ulcer (principal); E11.42 Type 2 diabetes mellitus with diabetic polyneuropathy; L97.422 Non-pressure chronic ulcer of left heel and midfoot with fat layer exposed; R60.0 Localized edema; L84 Corns and callosities; F17.210 Nicotine dependence, cigarettes, uncomplicated | CPT/HCPCS: 11042; 87070; 87075; 87077; 87147; 87205; 99214 ==

== ENCOUNTER → 2024-02-06 14:08 | Outpatient (CLI) | payer MEDICARE, MEDICAID, SELFPAY | PROVIDERS: PCP Physician Assistant Medical; Referring Provider Podiatrist; Visit Provider Physician Assistant | DX: E11.621 Type 2 diabetes mellitus with foot ulcer (principal); L97.522 Non-pressure chronic ulcer of other part of left foot with fat layer exposed; R60.0 Localized edema; L84 Corns and callosities | CPT/HCPCS: 99212 ==

== ENCOUNTER → 2024-02-10 11:28 | Outpatient (CLI) | payer MEDICARE, MEDICAID, SELFPAY | LOC: WC 11:30 | PROVIDERS: PCP Physician Assistant Medical; Referring Provider Podiatrist; Visit Provider Surgery | DX: E11.621 Type 2 diabetes mellitus with foot ulcer (principal); E11.42 Type 2 diabetes mellitus with diabetic polyneuropathy; L97.422 Non-pressure chronic ulcer of left heel and midfoot with fat layer exposed; L84 Corns and callosities; R60.0 Localized edema; F17.210 Nicotine dependence, cigarettes, uncomplicated | CPT/HCPCS: 11042 ==

== ENCOUNTER → 2024-02-12 11:48 | Outpatient (CLI) | payer MEDICARE, MEDICAID, SELFPAY ==
--- NOTE | 2024-02-12 11:51 | DI.RAD.S_ITS ---
PROCEDURE: XR FOOT LT MIN 3V INDICATIONS: Non-healing ulcer of left 3rd metatarsal head TECHNIQUE: 3 views of the foot were acquired. COMPARISON: [facility], CR, XR FOOT LT MIN 3V, 09/19/2023, 14:28. FINDINGS: Bones: No fractures or dislocations. There is a developing probable inflammatory arthritis involving the 2nd and 3rd MTP joints with an appearance which may indicate septic joints. Cannot exclude subtle fractures of the 4th and 5th metatarsal heads. No suspicious bony lesions. Soft tissues: No tibiotalar joint effusion. Achilles tendon appears normal. IMPRESSION: Question septic 2nd and 3rd MTP joints. Question subtle fractures of the 4th and 5th metatarsal heads. Comment: Recommend correlation with foot MRI with and without contrast. Dictated by: Tan Schmidt M.D. on 02/12/2024 at 14:50 Approved by: Tan Schmidt M.D. on 02/12/2024 at 14:53
[2024-02-12 13:17] LABS: Add Manual Diff / Slide Review NO; Basophils Absolute Auto 200 /uL (0-100); Basophils Percent Auto 2.9 % (0-2); Eosinophils Absolute Auto 500 /uL (0-450); Eosinophils Percent Auto 5.6 % (2-4); Lymphocytes Absolute Auto 2600 /uL (1100-4500); Lymphocytes Percent Auto 32.2 % (25-40); Mean Corpuscular HGB Conc 33.4 % (30-36); Mean Corpuscular Hemoglobin 28.3 PG (26-34); Mean Corpuscular Volume 84.7 fL (80-100); Monocytes Absolute Auto 400 /uL (0-900); Monocytes Percent Auto 5.4 % (3-14); Neutrophils Absolute Auto 4400 /uL (1500-7000); Neutrophils Percent Auto 53.9 % (50-75); Platelet Count 331 X10^3/uL (150-400); Red Blood Cell Count 3.55 X10^6/uL (4.0-5.2); Red Cell Distribution Width 15.3 % (11.6-14.8); White Blood Cell Count 8.1 X10^3/uL (4.5-11.0)
[2024-02-12 13:49] LABS: Alanine Aminotransferase 13 IU/L (<35); Albumin 3.2 g/dL (3.5-5.0); Albumin Globulin Ratio 0.9 (1.0-2.8); Alkaline Phosphatase 104 U/L (38-126); Aspartate Aminotransferase 21 IU/L (14-36); BUN Creatinine Ratio 29.5 (6-22); Bilirubin Total 0.5 mg/dL (0.2-1.3); Blood Urea Nitrogen 28 mg/dL (7-17); C-Reactive Protein Quant 0.6 mg/dL (<1.0); Calcium 8.5 mg/dL (8.4-10.2); Carbon Dioxide 30 mmol/L (22-32); Chloride 103 mmol/L (98-107); Estimated Glomerular Filt Rate > 60 mL/min (>60); Globulin 3.6 g/dL (1.7-4.1); Glucose 307 mg/dL (70-100); HEMOLYSIS 37 (0-50); Potassium 5.1 mmol/L (3.4-5.1); Sodium 133 mmol/L (137-145); Total Protein 6.8 g/dL (6.3-8.2)
[2024-02-12 14:23] LABS: Hemoglobin A1C% w Est Avg Glu 7.6 % (4.0-6.0)
[2024-02-12 14:43] LABS: Erythrocyte Sedimentation Rate 124 MM/HR (0-20)
== END ==
PROVIDERS: PCP Physician Assistant Medical; Referring Provider Surgery; Visit Provider Surgery
DX: E11.621 Type 2 diabetes mellitus with foot ulcer (principal); L97.529 Non-pressure chronic ulcer of other part of left foot with unspecified severity; L97.522 Non-pressure chronic ulcer of other part of left foot with fat layer exposed; R60.0 Localized edema; L84 Corns and callosities
CPT/HCPCS: 36415; 73630; 80053; 83036; 85025; 85651; 86140; 99213

== ENCOUNTER → 2024-02-12 13:38 | Outpatient (CLI) | payer MEDICARE, MEDICAID, SELFPAY | PROVIDERS: PCP Physician Assistant Medical; Referring Provider Podiatrist; Visit Provider Surgery | DX: E11.621 Type 2 diabetes mellitus with foot ulcer (principal); L97.522 Non-pressure chronic ulcer of other part of left foot with fat layer exposed; R60.0 Localized edema; L84 Corns and callosities | CPT/HCPCS: 99213 ==

== ENCOUNTER → 2024-02-17 10:07 | Outpatient (CLI) | payer MEDICARE, MEDICAID, SELFPAY | PROVIDERS: PCP Physician Assistant Medical; Referring Provider Podiatrist; Visit Provider Surgery | DX: E11.621 Type 2 diabetes mellitus with foot ulcer (principal); E11.42 Type 2 diabetes mellitus with diabetic polyneuropathy; L97.422 Non-pressure chronic ulcer of left heel and midfoot with fat layer exposed; L84 Corns and callosities; R60.0 Localized edema; F17.210 Nicotine dependence, cigarettes, uncomplicated | CPT/HCPCS: 11042; 99213 ==

== ENCOUNTER → 2024-02-20 10:54 | Outpatient (CLI) | payer MEDICARE, MEDICAID, SELFPAY | PROVIDERS: PCP Physician Assistant Medical; Referring Provider Podiatrist; Visit Provider Physician Assistant | DX: E11.621 Type 2 diabetes mellitus with foot ulcer (principal); L97.522 Non-pressure chronic ulcer of other part of left foot with fat layer exposed; L84 Corns and callosities; R60.0 Localized edema | CPT/HCPCS: 99212 ==

== ENCOUNTER → 2024-02-24 14:16 | Outpatient (CLI) | payer MEDICARE, MEDICAID, SELFPAY | LOC: WC 14:17 | PROVIDERS: PCP Physician Assistant Medical; Referring Provider Podiatrist; Visit Provider Surgery | DX: E11.621 Type 2 diabetes mellitus with foot ulcer (principal); E11.42 Type 2 diabetes mellitus with diabetic polyneuropathy; L97.422 Non-pressure chronic ulcer of left heel and midfoot with fat layer exposed; L84 Corns and callosities; R60.0 Localized edema; F17.210 Nicotine dependence, cigarettes, uncomplicated | CPT/HCPCS: 11042 ==

== ENCOUNTER 2024-03-24 20:13 | Observation (INO) | payer MEDICARE, MEDICAID, SELFPAY ==
[2024-03-24] VITALS (7 sets, daily range): BP systolic 181–209; BP diastolic 88–100; PULSE 81–91; RESP 16; TEMP 36.6; O2SAT 95–98; BMI 27.4
--- NOTE | 2024-03-24 20:44 | DI.US.S_ITS ---
PROCEDURE: US PERIPH VENOUS LOW EXTREM LT INDICATIONS: LLE swelling TECHNIQUE: Real-time imaging, as well as color and pulse Doppler interrogation, were performed of the lower extremity deep veins from the inguinal ligament to the popliteal fossa, with documentation of the visualized calf veins. COMPARISON: None. FINDINGS: The common femoral, femoral, popliteal, and the visualized calf veins are normally compressible, and free of intraluminal thrombus. Color and pulse Doppler demonstrate normal phasic intraluminal flow. There is normal augmentation response to distal compression maneuver. IMPRESSION: No findings of lower extremity deep venous thrombosis. Dictated by: Nidhi Daigle M.D. on 03/24/2024 at 21:54 Approved by: Nidhi Daigle M.D. on 03/24/2024 at 21:54
[2024-03-25] VITALS (16 sets, daily range): BP systolic 132–193; BP diastolic 72–101; PULSE 71–91; RESP 16–30; TEMP 36–37.2; O2SAT 92–99; BMI 27.4
--- NOTE | 2024-03-25 | ED.EXTPRO ---
HPI - Extremity Problem General Chief complaint: Extremity Problem,Nontraumatic Stated complaint: Lt foot and leg swelling Time Seen by Provider: 03/25/24 00:00 Source: patient Mode of arrival: Ambulatory History of Present Illness HPI Narrative: Patient 48-year-old female history of insulin-dependent diabetes mental illness presenting today with left leg swelling. She has had a chronic wound on her for foot for some time she was followed by wound care here for awhile however 2 months ago she quit going completely. She is stopped taking her mental health medication and other medication she was walking around on the streets until finally she came home a couple days ago. Family saw her leg today noted that her leg was much more swollen than it has been. Patient reports that he would got swollen and more painful a couple of days ago. She denies any sort of fever or chills. She reports that she avoids coming to the hospital and going to doctors because everyone tells her her foot is going to get amputated. She reports that she does sit outside and smoke regularly that might be why her legs are also red Related Data Home Medications Medication Instructions Recorded Confirmed insulin glargine 100 unit/mL (3 10 unit SUBCUT QPM 10/02/22 03/25/24 mL) subcutaneous pen (Lantus Solostar U-100 Insulin) atorvastatin 20 mg tablet 20 mg PO QPM 03/25/24 03/25/24 dulaglutide 0.75 mg/0.5 mL 0.75 mg SUBCUT WEEKLY 03/25/24 03/25/24 subcutaneous pen injector (Trulicity) risperidone 2 mg tablet 2 mg PO BID 03/25/24 03/25/24 trazodone 50 mg tablet 50 mg PO ONCE PM 03/25/24 03/25/24 Allergies Allergy/AdvReac Type Severity Reaction Status Date / Time No Known Drug Allergies Allergy Verified 10/02/22 08:43 Patient History Medical History Diabetes Family History Family/Other Stroke Diabetes mellitus Social History marital status: number of children: 2 household members: family Smoking Status: Current every day smoker alcohol intake: current Type(s) of exercise: walking frequency: decline to answer Smoking Status: Current every day smoker tobacco type: cigarettes alcohol intake frequency: holidays/special occasions only Substance Use Type: does not use Exam Initial Vital Signs Initial Vital Signs: Vital Signs Temperature 98 F 03/24/24 20:26 Pulse Rate 90 03/24/24 20:26 Respiratory Rate 16 03/24/24 20:26 Blood Pressure 181/89 H 03/24/24 20:26 Pulse Oximetry 98 03/24/24 20:26 Oxygen Delivery Method Room Air 03/24/24 20:26 GENERAL: Alert pleasant 48-year-old female and in no acute distress. HEENT: Head atraumatic,EOMI, pupils reactive, face symmetric, moist mucous membranes CARDIOVASCULAR: Regular rate and rhythm without murmurs, rubs or gallops. RESPIRATORY: Breath sounds equal bilaterally, no wheezes rales or rhonchi. ABDOMEN: Soft, nontender. Normoactive bowel sounds all 4 quadrants. No guarding or rebound. : No CVA tenderness EXTREMITIES: Normal range of motion, no clubbing or edema. Neurovascularly intact Left leg more swollen than right leg mild erythema on anterior villegas to about mid villegas but very subtle significantly dry cracked skin noted over toe Plantar foot does have a chronic ulcer which does have a foul smell wound does have some drainage NEUROLOGICAL: Alert and oriented x4.Normal gait and speech. SKIN: Warm, dry, no laceration, no petechiae, no rashes or lesions. Course Orders Ordered: ED Orders 03/25/24 00:10 Wound Culture and Gram Stain Stat 03/25/24 00:12 XR foot LT min 3V Stat 03/25/24 00:28 CBC Auto Diff [Complete Blood Count AUTO DIFF] Stat CMP [Comprehensive Metabolic Panel] Stat CRP [C-Reactive Protein Quant] Stat ESR [Erythrocyte Sedimentation Rate] Stat Lactate (Lactic Acid) Stat Procalcitonin Stat 03/25/24 01:20 Blood Culture Stat Acetaminophen (Acetaminophen 325 Mg Tablet) 650 mg PO Q6H PRN PRN Reason: Fever/Mild Pain (1-3) Enoxaparin Sodium (Enoxaparin 40 Mg/0.4 Ml Syringe) 40 mg SUBCUT DAILY [facility] Dextrose (D10w) 100 mls @ 1,200 mls/hr IV PRN PRN PRN Reason: Hypoglycemia Cefepime HCl 1 gm/ Sodium (Chloride) 100 mls @ 200 mls/hr IV Q12H [facility] Vancomycin HCl/Dextrose (Vancomycin) 1,500 mg in 300 mls @ 150 mls/hr IV Q24H [facility] Insulin Glargine (Insulin Glargine 100 Unit/Ml 3ml Pen) 10 unit SUBCUT QPM [facility] Insulin Human Lispro (Insulin Lispro 100 Unit/Ml 3ml Vial) 0 unit SUBCUT ACHS [facility]; Protocol Olanzapine (Olanzapine 2.5 Mg Tablet) 2.5 mg PO DAILY [facility] Oxycodone HCl (Oxycodone Ir 5 Mg Tablet) 5 mg PO Q3H PRN PRN Reason: Pain, Moderate (4-6) Vancomycin HCl (Vancomycin Per Pharmacy) 1 request MISC NOW PRN PRN Reason: cellulitis Discontinued Medications Cefepime HCl 2 gm/ Sodium (Chloride) 100 mls @ 200 mls/hr IV NOW ONE Stop: 03/25/24 01:15 Last Infusion: 03/25/24 01:49 Dose: Infused Documented By: Admin: 03/25/24 01:19 Dose: 200 mls/hr Documented By: Vancomycin HCl/Dextrose (Vancomycin) 1,500 mg in 300 mls @ 200 mls/hr IV NOW ONE Stop: 03/25/24 02:43 Last Infusion: 03/25/24 03:49 Dose: Infused Documented By: Admin: 03/25/24 02:08 Dose: 200 mls/hr Documented By: BENITO Cefepime HCl 1 gm/ Sodium (Chloride) 100 mls @ 200 mls/hr IV Q12H [facility] Vital Signs Vital signs: Vital Signs - 8 hr 03/24/24 22:36 03/24/24 22:41 03/24/24 22:42 Pulse Rate 81 82 Pulse Rate [Left Posterior Tibial] 90 Blood Pressure Pulse Oximetry 96 95 Oxygen Delivery Method 03/24/24 22:42 03/24/24 23:00 03/24/24 23:01 Pulse Rate 81 82 Pulse Rate [Left Posterior Tibial] Blood Pressure 209/100 H Pulse Oximetry 97 97 Oxygen Delivery Method 03/24/24 23:01 03/24/24 23:30 03/24/24 23:30 Pulse Rate 91 H Pulse Rate [Left Posterior Tibial] Blood Pressure 191/88 H 206/95 H Pulse Oximetry 96 Oxygen Delivery Method Room Air 03/25/24 00:32 03/25/24 00:33 03/25/24 00:33 Pulse Rate 83 79 Pulse Rate [Left Posterior Tibial] Blood Pressure 193/88 H Pulse Oximetry 97 97 Oxygen Delivery Method Room Air 03/25/24 01:11 03/25/24 01:12 03/25/24 01:12 Pulse Rate 79 85 Pulse Rate [Left Posterior Tibial] Blood Pressure 137/101 H Pulse Oximetry 99 98 Oxygen Delivery Method 03/25/24 01:30 03/25/24 01:30 03/25/24 02:00 Pulse Rate 71 Pulse Rate [Left Posterior Tibial] 90 Blood Pressure 160/74 H Pulse Oximetry 96 Oxygen Delivery Method 03/25/24 02:00 03/25/24 02:00 03/25/24 02:30 Pulse Rate 79 Pulse Rate [Left Posterior Tibial] Blood Pressure 168/72 H 183/77 H Pulse Oximetry 96 Oxygen Delivery Method 03/25/24 02:30 03/25/24 03:00 03/25/24 03:00 Pulse Rate 88 84 Pulse Rate [Left Posterior Tibial] Blood Pressure 163/72 H Pulse Oximetry 97 95 Oxygen Delivery Method Room Air MDM - Extremity (Nontraumatic) Lab Data 03/25/24 00:28 03/25/24 00:28 Labs: Lab Results 03/25/24 Range/Units 00:28 WBC 11.0 (4.5-11.0) X10^3/uL RBC 3.55 L (4.0-5.2) X10^6/uL Hgb 9.7 L (12.0-16.0) g/dL Hct 29.5 L (36-46) % MCV 83.1 (80-100) fL MCH 27.4 (26-34) PG MCHC 33.0 (30-36) % RDW 13.7 (11.6-14.8) % Plt Count 386 (150-400) X10^3/uL Neut % (Auto) 52.2 (50-75) % Lymph % (Auto) 31.5 (25-40) % [place] % (Auto) 6.2 (3-14) % Eos % (Auto) 8.8 H (2-4) % Baso % (Auto) 1.3 (0-2) % Neut # (Auto) 5800 (8136-0843) /uL Lymph # (Auto) 3500 (5211-0782) /uL [place] # (Auto) 700 (0-900) /uL Eos # (Auto) 1000 H (0-450) /uL Baso # (Auto) 100 (0-100) /uL ESR 3 (0-20) MM/HR Sodium 138 (137-145) mmol/L Potassium 4.2 (3.4-5.1) mmol/L Chloride 107 (98-107) mmol/L Carbon Dioxide 28 (22-32) mmol/L BUN 28 H (7-17) mg/dL Creatinine 1.20 H (0.52-1.04) mg/dL Estimated GFR 55 L (>60) mL/min BUN/Creatinine Ratio 23.3 H (6-22) Glucose 180 H (70-100) mg/dL Lactate 0.9 (0.7-2.1) mmol/L Calcium 9.1 (8.4-10.2) mg/dL Total Bilirubin 0.3 (0.2-1.3) mg/dL AST 19 (14-36) IU/L ALT 13 (<35) IU/L Alkaline Phosphatase 143 H (38-126) U/L C-Reactive Protein 3.1 H (<1.0) mg/dL Total Protein 7.1 (6.3-8.2) g/dL Albumin 3.4 L (3.5-5.0) g/dL Globulin 3.7 (1.7-4.1) g/dL Albumin/Globulin Ratio 0.9 L (1.0-2.8) Procalcitonin 0.077 (<0.5) ng/mL Imaging Data Extremity x-ray #1: Radiologist's Impression: PROCEDURE: XR FOOT LT MIN 3V INDICATIONS: wound osteomyelitis TECHNIQUE: 3 views of the foot were acquired. COMPARISON: [facility], CR, XR FOOT LT MIN 3V, 02/12/2024, 11:49. [facility], CR, XR FOOT LT MIN 3V, 09/19/2023, 14:28. FINDINGS: Bones: Comminuted intra-articular fracture of the base of the 1st proximal phalanx. Comminuted fracture of the 2nd metatarsal head with mild collapse. Plantar calcaneal enthesophyte is present. Healed osseous deformity of the distal 4th metatarsal. Chronic remodeling of the 3rd proximal phalangeal base. No definite osseous erosion. Soft tissues: Soft tissue edema is present in the forefoot. Skin ulceration is seen at the plantar aspect of the foot. IMPRESSION: 1. Acute comminuted mildly displaced intra-articular fracture of the 1st proximal phalangeal base. 2. Comminuted fracture of the 2nd metatarsal head with mild collapse, likely subacute. Approved by: Dave Velasquez M.D. on 03/25/2024 at 0:30 US - DVT: Radiologist's Impression: PROCEDURE: US PERIPH VENOUS LOW EXTREM LT INDICATIONS: LLE swelling TECHNIQUE: Real-time imaging, as well as color and pulse Doppler interrogation, were performed of the lower extremity deep veins from the inguinal ligament to the popliteal fossa, with documentation of the visualized calf veins. COMPARISON: None. FINDINGS: The common femoral, femoral, popliteal, and the visualized calf veins are normally compressible, and free of intraluminal thrombus. Color and pulse Doppler demonstrate normal phasic intraluminal flow. There is normal augmentation response to distal compression maneuver. IMPRESSION: No findings of lower extremity deep venous thrombosis. Dictated by: Nidhi Daigle M.D. on 03/24/2024 at 21:54 MDM Narrative Medical decision making narrative: MDM CC: Left leg swelling Complicating co-morbidities: Insulin-dependent diabetes, smoking, noncompliance temporary homelessness Data collected from: Family at bedside Medical records reviewed: Left foot x-ray done on 02/12/2024, questionable septic 2nd and 3rd MTP joints subtle fractures on the 4th and the 5th metatarsal Differential considered: Osteomyelitis, cellulitis, sepsis, Exam documented above, pertinent findings include: Patient has chronic wound on left foot with new significant left lower extremity swelling left greater than right with some mild erythema and foul smell Lab Test results independently reviewed as above. Pertinent findings: WBC 11.0, hemoglobin 9.7, hematocrit 29.5, platelets 386, Lactate 0.9 Procalcitonin 0.077 CRP 3.1 previously on 02/12/2024 it was 0.6 ESR is 3 previously on 02/12/2024 it was 124 sodium 138, potassium 4.2, chloride 107, carbon dioxide 28, BUN 28, creatinine 1.2 previously 0.9 Independently reviewed EKG as above Imaging studies independently reviewed: Left foot x-ray today acute, noted 1st proximal phalangeal base comminuted fracture of the 2nd metatarsal chronic remodeling of the 3rd proximal phalangeal base healed osseous deformity of 4th metatarsal Consultations: Dr. Otto accepts patient to observation Treatments: Cefepime, vancomycin Discussion: Patient 48-year-old female insulin-dependent diabetic presents today with left leg swelling. She reports not going to wound care for 2 months however there is blood work from February 11 and an x-ray ordered by wound care. It does not appear that she was prescribed antibiotics although I can not see those records. She was given doxycycline in December for an unknown reason. She has a chronic nonhealing ulcer on the bottom of her foot new multiple toe fractures she has orthotic shoes that she has been walking on. sHe is not grossly septic but she does have an increased CRP which was previously normal however for ESR which was previously high is now normal. She has no sign of severe sepsis normal lactate normal leukocytosis vitals are stable she is even hypertensive she has not taken her blood pressure medications She really does not want foot amputation or surgery. She also has a mild JAMEL with a creatinine of 1.2 previously less 1 Discharge Plan Departure Patient Disposition: Admitted as Observation Clinical Impression: Cellulitis Admit Date/Time: 03/25/24 03:17 Admit Provider: Reji Veliz
--- NOTE | 2024-03-25 00:12 | DI.RAD.S_ITS ---
PROCEDURE: XR FOOT LT MIN 3V INDICATIONS: wound osteomyelitis TECHNIQUE: 3 views of the foot were acquired. COMPARISON: [facility], CR, XR FOOT LT MIN 3V, 02/12/2024, 11:49. [facility], CR, XR FOOT LT MIN 3V, 09/19/2023, 14:28. FINDINGS: Bones: Comminuted intra-articular fracture of the base of the 1st proximal phalanx. Comminuted fracture of the 2nd metatarsal head with mild collapse. Plantar calcaneal enthesophyte is present. Healed osseous deformity of the distal 4th metatarsal. Chronic remodeling of the 3rd proximal phalangeal base. No definite osseous erosion. Soft tissues: Soft tissue edema is present in the forefoot. Skin ulceration is seen at the plantar aspect of the foot. IMPRESSION: 1. Acute comminuted mildly displaced intra-articular fracture of the 1st proximal phalangeal base. 2. Comminuted fracture of the 2nd metatarsal head with mild collapse, likely subacute. Approved by: Dave Velasquez M.D. on 03/25/2024 at 0:30
[2024-03-25 00:40] LABS: Add Manual Diff / Slide Review NO; Basophils Absolute Auto 100 /uL (0-100); Basophils Percent Auto 1.3 % (0-2); Eosinophils Absolute Auto 1000 /uL (0-450); Eosinophils Percent Auto 8.8 % (2-4); Hematocrit 29.5 % (36-46); Hemoglobin 9.7 g/dL (12.0-16.0); Lymphocytes Absolute Auto 3500 /uL (1100-4500); Lymphocytes Percent Auto 31.5 % (25-40); Mean Corpuscular Hemoglobin 27.4 PG (26-34); Mean Corpuscular Volume 83.1 fL (80-100); Monocytes Absolute Auto 700 /uL (0-900); Monocytes Percent Auto 6.2 % (3-14); Neutrophils Absolute Auto 5800 /uL (1500-7000); Neutrophils Percent Auto 52.2 % (50-75); Platelet Count 386 X10^3/uL (150-400); Red Blood Cell Count 3.55 X10^6/uL (4.0-5.2); Red Cell Distribution Width 13.7 % (11.6-14.8)
[2024-03-25 00:58] LABS: Lactate (Lactic Acid) 0.9 mmol/L (0.7-2.1)
[2024-03-25 01:01] LABS: Alanine Aminotransferase 13 IU/L (<35); Albumin 3.4 g/dL (3.5-5.0); Albumin Globulin Ratio 0.9 (1.0-2.8); Alkaline Phosphatase 143 U/L (38-126); Aspartate Aminotransferase 19 IU/L (14-36); BUN Creatinine Ratio 23.3 (6-22); Bilirubin Total 0.3 mg/dL (0.2-1.3); Blood Urea Nitrogen 28 mg/dL (7-17); C-Reactive Protein Quant 3.1 mg/dL (<1.0); Calcium 9.1 mg/dL (8.4-10.2); Carbon Dioxide 28 mmol/L (22-32); Chloride 107 mmol/L (98-107); Estimated Glomerular Filt Rate 55 mL/min (>60); Globulin 3.7 g/dL (1.7-4.1); Glucose 180 mg/dL (70-100); HEMOLYSIS < 15 (0-50); Potassium 4.2 mmol/L (3.4-5.1); Sodium 138 mmol/L (137-145); Total Protein 7.1 g/dL (6.3-8.2)
[2024-03-25 01:16] LABS: Procalcitonin 0.077 ng/mL (<0.5)
[2024-03-25] MEDS: CEFEPIME 2 GM in SODIUM CHLORIDE 0.9% 100 ML IV (01:19)
[2024-03-25 01:33] LABS: Erythrocyte Sedimentation Rate 3 MM/HR (0-20)
[2024-03-25] MEDS: VANCOMYCIN 1,500 MG/300 ML PIGGYBACK 200 MG IV (02:08)
--- NOTE | 2024-03-25 04:59 | P.HP_ITS ---
History of Present Illness History of Present Illness Date Patient Seen: 03/25/24 Chief complaint: Lt foot and leg swelling Narrative: 48 y/o with PMH of Lt foot diabetic ulcer, presented to ED with swollen LLE and evidence of cellulitis. She stopped going to wound care more then a month ago. In addition, she was not compliant with other home medications. On presentation to ED suspected for sepsis and covered broadly with cefepime and vancomycin. She hgas chronic numbness of both feet related to diabetic neuropathy and currently has mild left foot / lower leg pain. Without chills or fever. Admitted for IV abx with LLE cellulitis. [facility] Medical History (Updated 03/25/24 @ 06:55 by Reji Otto MD) Psychotic disorder Diabetes Family History Family/Other Stroke Diabetes mellitus Social History marital status: number of children: 2 household members: family Smoking Status: Current every day smoker alcohol intake: current Type(s) of exercise: walking frequency: decline to answer Meds Home Medications and Allergies Home Medications Medication Instructions Recorded Confirmed Type insulin glargine 100 unit/mL (3 10 unit SUBCUT QPM 10/02/22 03/25/24 History mL) subcutaneous pen (Lantus Solostar U-100 Insulin) atorvastatin 20 mg tablet 20 mg PO QPM 03/25/24 03/25/24 History dulaglutide 0.75 mg/0.5 mL 0.75 mg SUBCUT WEEKLY 03/25/24 03/25/24 History subcutaneous pen injector (Trulicity) risperidone 2 mg tablet 2 mg PO BID 03/25/24 03/25/24 History trazodone 50 mg tablet 50 mg PO ONCE PM 03/25/24 03/25/24 History Allergies Allergy/AdvReac Type Severity Reaction Status Date / Time No Known Drug Allergies Allergy Verified 10/02/22 08:43 Review of Systems Constitutional Comments: w/o fever or chills Cardiovascular Comments: w/o chest pain or palpitations Respiratory Comments: w/o shortness of breath Gastrointestinal Comments: w/o pain, w/o changes of bowel habits Genitourinary Comments: w/o dysuria Musculoskeletal Comments: w/o myalgia Psychiatric Comments: w/o hallucinations Exam Vital Signs (past 8 hours): - 03/24/24 22:36 03/24/24 22:41 03/24/24 22:42 Pulse Rate 81 82 Pulse Rate [Left Posterior Tibial] 90 Blood Pressure Pulse Oximetry 96 95 Oxygen Delivery Method 03/24/24 22:42 03/24/24 23:00 03/24/24 23:01 Pulse Rate 81 82 Pulse Rate [Left Posterior Tibial] Blood Pressure 209/100 H Pulse Oximetry 97 97 Oxygen Delivery Method 03/24/24 23:01 03/24/24 23:30 03/24/24 23:30 Pulse Rate 91 H Pulse Rate [Left Posterior Tibial] Blood Pressure 191/88 H 206/95 H Pulse Oximetry 96 Oxygen Delivery Method Room Air 03/25/24 00:32 03/25/24 00:33 03/25/24 00:33 Pulse Rate 83 79 Pulse Rate [Left Posterior Tibial] Blood Pressure 193/88 H Pulse Oximetry 97 97 Oxygen Delivery Method Room Air 03/25/24 01:11 03/25/24 01:12 03/25/24 01:12 Pulse Rate 79 85 Pulse Rate [Left Posterior Tibial] Blood Pressure 137/101 H Pulse Oximetry 99 98 Oxygen Delivery Method 03/25/24 01:30 03/25/24 01:30 03/25/24 02:00 Pulse Rate 71 Pulse Rate [Left Posterior Tibial] 90 Blood Pressure 160/74 H Pulse Oximetry 96 Oxygen Delivery Method 03/25/24 02:00 03/25/24 02:00 03/25/24 02:30 Pulse Rate 79 Pulse Rate [Left Posterior Tibial] Blood Pressure 168/72 H 183/77 H Pulse Oximetry 96 Oxygen Delivery Method 03/25/24 02:30 03/25/24 03:00 03/25/24 03:00 Pulse Rate 88 84 Pulse Rate [Left Posterior Tibial] Blood Pressure 163/72 H Pulse Oximetry 97 95 Oxygen Delivery Method Room Air 03/25/24 03:30 03/25/24 03:30 03/25/24 04:00 Pulse Rate 76 77 Pulse Rate [Left Posterior Tibial] Blood Pressure 165/92 H Pulse Oximetry 92 97 Oxygen Delivery Method Room Air 03/25/24 04:00 Pulse Rate Pulse Rate [Left Posterior Tibial] Blood Pressure 179/86 H Pulse Oximetry Oxygen Delivery Method Oxygen Delivery Method Room Air Const Other: in no distress HENMT Other: normocephalic Eyes Other: equal pupils, EOMI Neck Other: supple Resp Other: normal respiratory effort Cardio Other: RRR Neuro Other: chronic b/l feet numbness, w/o acute deficits Psych Other: appropriate mood, flat affect Objective Labs 03/25/24 00:28 03/25/24 00:28 Labs: Laboratory Results - last 24 hr 03/25/24 00:28 WBC 11.0 RBC 3.55 L Hgb 9.7 L Hct 29.5 L MCV 83.1 MCH 27.4 MCHC 33.0 RDW 13.7 Plt Count 386 Neut % (Auto) 52.2 Lymph % (Auto) 31.5 [place] % (Auto) 6.2 Eos % (Auto) 8.8 H Baso % (Auto) 1.3 Neut # (Auto) 5800 Lymph # (Auto) 3500 [place] # (Auto) 700 Eos # (Auto) 1000 H Baso # (Auto) 100 ESR 3 Sodium 138 Potassium 4.2 Chloride 107 Carbon Dioxide 28 BUN 28 H Creatinine 1.20 H Estimated GFR 55 L BUN/Creatinine Ratio 23.3 H Glucose 180 H Lactate 0.9 Calcium 9.1 Total Bilirubin 0.3 AST 19 ALT 13 Alkaline Phosphatase 143 H C-Reactive Protein 3.1 H Total Protein 7.1 Albumin 3.4 L Globulin 3.7 Albumin/Globulin Ratio 0.9 L Procalcitonin 0.077 Assessment & Plan Assessment and plan (1) Cellulitis of left leg: Status: Acute (2) Psychotic disorder: Status: Acute Assessment & Plan narrative: LLE Cellulitis - Cefepime, Vancomycin DM - long acting insulin, SS, CCD Diabetic Ulcer Lt foot, Diabetic Neuropathy - wound care consult Psychotic Disorder - Risperidone DVT prophylaxis - Lovenox Time-Based Coding :: [TOTAL MINUTES] spent with patient and on the chart (including review of chart, obtaining history, exam, reviewing outside data, placing orders, documenting exam and treatment plan, and counseling patient) on [DATE].
--- NOTE | 2024-03-25 07:40 | PM.HP.1 ---
History of Present Illness History of Present Illness Date Patient Seen: 03/25/24 Chief complaint: Lt foot and leg swelling Narrative: From night doctor: 48 y/o with PMH of Lt foot diabetic ulcer, presented to ED with swollen LLE and evidence of cellulitis. She stopped going to wound care more then a month ago. In addition, she was not compliant with other home medications. On presentation to ED suspected for sepsis and covered broadly with cefepime and vancomycin. She hgas chronic numbness of both feet related to diabetic neuropathy and currently has mild left foot / lower leg pain. Without chills or fever. Admitted for IV abx with LLE cellulitis. Additional information: Subjective: The leg is little bit better. Still somewhat swollen. Less red. She was a chronic foot ulcer. No chest pain and dyspnea. [facility] Medical History Psychotic disorder Diabetes Family History Family/Other Stroke Diabetes mellitus Social History marital status: number of children: 2 household members: family Smoking Status: Current every day smoker alcohol intake: current Type(s) of exercise: walking frequency: decline to answer Meds Home Medications and Allergies Home Medications Medication Instructions Recorded Confirmed Type insulin glargine 100 unit/mL (3 10 unit SUBCUT QPM 10/02/22 03/25/24 History mL) subcutaneous pen (Lantus Solostar U-100 Insulin) atorvastatin 20 mg tablet 20 mg PO QPM 03/25/24 03/25/24 History dulaglutide 0.75 mg/0.5 mL 0.75 mg SUBCUT WEEKLY 03/25/24 03/25/24 History subcutaneous pen injector (Trulicity) risperidone 2 mg tablet 2 mg PO BID 03/25/24 03/25/24 History trazodone 50 mg tablet 50 mg PO ONCE PM 03/25/24 03/25/24 History Allergies Allergy/AdvReac Type Severity Reaction Status Date / Time No Known Drug Allergies Allergy Verified 10/02/22 08:43 Review of Systems Review of Systems Narrative: All else reviewed and otherwise unremarkable except as noted in the history and physical. Exam Vital Signs (past 8 hours): - 03/25/24 00:32 03/25/24 00:33 03/25/24 00:33 Temperature Pulse Rate 83 79 Pulse Rate [Left Posterior Tibial] Respiratory Rate Blood Pressure 193/88 H Pulse Oximetry 97 97 Oxygen Delivery Method Room Air Oxygen Flow Rate 03/25/24 01:11 03/25/24 01:12 03/25/24 01:12 Temperature Pulse Rate 79 85 Pulse Rate [Left Posterior Tibial] Respiratory Rate Blood Pressure 137/101 H Pulse Oximetry 99 98 Oxygen Delivery Method Oxygen Flow Rate 03/25/24 01:30 03/25/24 01:30 03/25/24 02:00 Temperature Pulse Rate 71 Pulse Rate [Left Posterior Tibial] 90 Respiratory Rate Blood Pressure 160/74 H Pulse Oximetry 96 Oxygen Delivery Method Oxygen Flow Rate 03/25/24 02:00 03/25/24 02:00 03/25/24 02:30 Temperature Pulse Rate 79 Pulse Rate [Left Posterior Tibial] Respiratory Rate Blood Pressure 168/72 H 183/77 H Pulse Oximetry 96 Oxygen Delivery Method Oxygen Flow Rate 03/25/24 02:30 03/25/24 03:00 03/25/24 03:00 Temperature Pulse Rate 88 84 Pulse Rate [Left Posterior Tibial] Respiratory Rate Blood Pressure 163/72 H Pulse Oximetry 97 95 Oxygen Delivery Method Room Air Oxygen Flow Rate 03/25/24 03:30 03/25/24 03:30 03/25/24 04:00 Temperature Pulse Rate 76 77 Pulse Rate [Left Posterior Tibial] Respiratory Rate Blood Pressure 165/92 H Pulse Oximetry 92 97 Oxygen Delivery Method Room Air Oxygen Flow Rate 03/25/24 04:00 03/25/24 05:27 03/25/24 05:30 Temperature 96.8 F L Pulse Rate 80 Pulse Rate [Left Posterior Tibial] Respiratory Rate 16 Blood Pressure 179/86 H 150/79 H Pulse Oximetry 95 Oxygen Delivery Method Room Air Oxygen Flow Rate 0 Oxygen Delivery Method Room Air Oxygen Flow Rate 0 Narrative Exam Narrative: NAD, alert and oriented, fluent speech, calm. Normocephalic skull, EOMI, anicteric sclera, symmetric pupils. Oropharynx unremarkable, no droop. Neck supple, midline trachea, no adenopathy. Lungs clear, normal rate and effort. Heart regular, no murmur gallop or rub. Abdomen is soft, non distended and non tender. Extremities: left leg not red but still swollen. Dry. deep foot ulcer ball of left foot. No right leg edema. Skin is free of rash or lesions. Joints are not swollen or deformed. Judgment appears to be normal. Objective Imaging Multiple studies: : Radiologist's impression: Foot X-ray: 1. Acute comminuted mildly displaced intra-articular fracture of the 1st proximal phalangeal base. 2. Comminuted fracture of the 2nd metatarsal head with mild collapse, likely subacute. Vascular US: No findings of lower extremity deep venous thrombosis. Labs 03/25/24 08:35 03/25/24 08:35 Labs: Laboratory Results - last 24 hr 03/25/24 00:28 WBC 11.0 RBC 3.55 L Hgb 9.7 L Hct 29.5 L MCV 83.1 MCH 27.4 MCHC 33.0 RDW 13.7 Plt Count 386 Neut % (Auto) 52.2 Lymph % (Auto) 31.5 Garza % (Auto) 6.2 Eos % (Auto) 8.8 H Baso % (Auto) 1.3 Neut # (Auto) 5800 Lymph # (Auto) 3500 Garza # (Auto) 700 Eos # (Auto) 1000 H Baso # (Auto) 100 ESR 3 Sodium 138 Potassium 4.2 Chloride 107 Carbon Dioxide 28 BUN 28 H Creatinine 1.20 H Estimated GFR 55 L BUN/Creatinine Ratio 23.3 H Glucose 180 H Lactate 0.9 Calcium 9.1 Total Bilirubin 0.3 AST 19 ALT 13 Alkaline Phosphatase 143 H C-Reactive Protein 3.1 H Total Protein 7.1 Albumin 3.4 L Globulin 3.7 Albumin/Globulin Ratio 0.9 L Procalcitonin 0.077 Assessment & Plan Assessment & Plan narrative: 1. Left leg Cellulitis, present on admission and active. - Cefepime, Vancomycin 2. DM 2, present on admission stable. - long acting insulin, SS, CCD 3. Diabetic Ulcer Lt foot, Diabetic Neuropathy, present on admission and active. - wound care consult 4. Psychotic Disorder, present on admission and active. - Risperidone PLAN: -continue antibiotics, nares screen for MRSA. If negative stopped vancomycin. -leg elevation. -follow up blood cultures. -wound consult. Observation status, 1 midnight is expected. Full resuscitation. Time-Based Coding :: 20 min spent with patient and on the chart (including review of chart, obtaining history, exam, reviewing outside data, placing orders, documenting exam and treatment plan, and counseling patient) on 03/25.
[2024-03-25] MEDS: INSULIN LISPRO 100 UNIT/ML 3ML VIAL SUBCUT ×3 (08:39→17:09)
[2024-03-25 08:47] LABS: Add Manual Diff / Slide Review NO; Basophils Absolute Auto 100 /uL (0-100); Basophils Percent Auto 1.3 % (0-2); Eosinophils Absolute Auto 1000 /uL (0-450); Eosinophils Percent Auto 10.2 % (2-4); Hematocrit 28.9 % (36-46); Hemoglobin 9.6 g/dL (12.0-16.0); Lymphocytes Absolute Auto 2300 /uL (1100-4500); Lymphocytes Percent Auto 22.7 % (25-40); Mean Corpuscular HGB Conc 33.4 % (30-36); Mean Corpuscular Hemoglobin 27.8 PG (26-34); Mean Corpuscular Volume 83.2 fL (80-100); Monocytes Absolute Auto 800 /uL (0-900); Monocytes Percent Auto 7.7 % (3-14); Neutrophils Absolute Auto 5900 /uL (1500-7000); Neutrophils Percent Auto 58.1 % (50-75); Platelet Count 366 X10^3/uL (150-400); Red Blood Cell Count 3.47 X10^6/uL (4.0-5.2); Red Cell Distribution Width 13.5 % (11.6-14.8); White Blood Cell Count 10.1 X10^3/uL (4.5-11.0)
[2024-03-25] MEDS: ENOXAPARIN 40 MG/0.4 ML SYRINGE SUBCUT (08:56)
[2024-03-25] MEDS: risperiDONE 1 MG TABLET 2 MG PO ×2 (08:56→20:47)
[2024-03-25 09:04] LABS: BUN Creatinine Ratio 21.6 (6-22); Blood Urea Nitrogen 24 mg/dL (7-17); Calcium 8.8 mg/dL (8.4-10.2); Carbon Dioxide 27 mmol/L (22-32); Chloride 107 mmol/L (98-107); Estimated Glomerular Filt Rate > 60 mL/min (>60); Glucose 197 mg/dL (70-100); HEMOLYSIS < 15 (0-50); Potassium 4.3 mmol/L (3.4-5.1); Sodium 137 mmol/L (137-145)
--- NOTE | 2024-03-25 11:25 | DIET.CONS ---
Dietary Consultation Note Admission Date: 03/25/2024 03:17 Assessment: 48 y F admitted for cellulitis, diabetic ulcer. PMH insulin-dependent DM. Nutrition consulted for ulcer. Attempted visit. Pt sleeping and not awaken by calling out name. EMR reviewed. A1c 7.6% on 02/12/24. Ht: 160.02 cm Wt: 70.307 kg BMI: 27.4 UBW: limited wt hx, 71.668 kg on 10/02/22 Last BM: 03/24/24 (03/25/24 05:27) MNA: Herb Score: 22 Diet: 03/25/24 Breakfast Carbohydrate Consistent Diet Diet Modifications: Carbohydrate level: Medium (3 CHO) Reflex DM orders: No Food Texture: Level 7 - Regular Liquid Consistency: Level 0 - Thin Nutrition Percent Meal Consumed 75% 03/25/24 09:00 Labs: RBC 3.47 X10^6/uL (4.0-5.2) L 03/25/24 08:35 Hgb 9.6 g/dL (12.0-16.0) L 03/25/24 08:35 Hct 28.9 % (36-46) L 03/25/24 08:35 Creatinine 1.11 mg/dL (0.52-1.04) H 03/25/24 08:35 Lactate 0.9 mmol/L (0.7-2.1) 03/25/24 00:28 Nutrition Diagnosis: Increased nutrient needs (protein) r/t wound healing aeb left plantar diabetic ulcer Interventions: Jono BID EER: 90-100 g protein (1.25-1.5 g/kg per wound) Monitoring/Evaluations: f/u for Jono tolerance, BG Electronically Signed by: Gilda Trejo 03/25/24 11:25 Clinical Dietitian [address] [address]
--- NOTE | 2024-03-25 13:24 | CM.DANOTE ---
DCP Assessment note pt is a 48yo F here with cellulitis on her left foot from a chronic diabetic ulcer. Admitted for IV antibiotics, getting cefapime and vanco. PCP Y[facility] ACCT EXEC reviewed EMR. Per chart, hx of wound care OP with Dr. Ochoa. Per hospitalist, wound care consult placed for this admission. Plan is to continue antibiotics, likely dc home tomorrow, Monday 03/26. Per provider/RN report, questions on how med compliant pt is at home. ACCT EXEC lvm with wound care main line to give them a heads up on wc consult. ACCT EXEC met with pt in room. Pt confirms living in [place] with dtr Shanell, marisabel Maciel, and other family. Report she normally drives but has not lately. Dtr or son transport her to her appointments and help her as needed at home. Pt denies any CM/DCP needs at this time. Report dtr can pick her up at discharge she just needs to know when to call dtr. ACCT EXEC updated RN about transport concerns. P: anticipate home tomorrow 03/26 with family support. antibiotic and wound care need pending. CM team will continue to follow closely. ERIK Bird Discharge Planning/Care Management CM Discharge Assessment Start: 03/25/24 13:16 Freq: Status: Active Protocol: Document 03/25/24 13:16 (Rec: 03/25/24 13:23 [id number]) Discharge Planning Assessment Assigned Daily Release And Dupe Printer ERIK Riddle DPOA/Assigned Designee Name joy Desai Contact Information [phone] Advance Directives? No Prior Living Arrangements House Household Members family Comment normally drives but has not driven lately. relies on dtr Shanell, marisabel Maciel, or other family for transport Is patient alert and oriented? Yes Discharge Plan Home Transportation Arrangement family in POV Additional Comment follow for any abx or wound care needs Whiteboard Updated in Patient Room with Yes name and ext. # of Daily Release And Dupe Printer Review Status In Process Please Provide Date Initial DC 03/25/24 Assessment Was Performed Next Review Type Continued Stay Review
--- NOTE | 2024-03-25 16:47 | PM.CN ---
History of Present Illness Consult details Date Patient Seen: 03/25/24 Time Patient Seen: 15:20 Chief complaint: Lt foot and leg swelling Reason for consult: Wound on left foot Narrative: 48-year-old female with history of left foot DFU. She presented to the ER with evidence of cellulitis of the left lower extremity. She has previously been followed by wound care. On today's exam wound appears stable, surrounded by callus. No active drainage. Meds Home Medications and Allergies Home Medications Medication Instructions Recorded Confirmed Type insulin glargine 100 unit/mL (3 10 unit SUBCUT QPM 10/02/22 03/25/24 History mL) subcutaneous pen (Lantus Solostar U-100 Insulin) atorvastatin 20 mg tablet 20 mg PO QPM 03/25/24 03/25/24 History dulaglutide 0.75 mg/0.5 mL 0.75 mg SUBCUT WEEKLY 03/25/24 03/25/24 History subcutaneous pen injector (Trulicity) risperidone 2 mg tablet 2 mg PO BID 03/25/24 03/25/24 History trazodone 50 mg tablet 50 mg PO ONCE PM 03/25/24 03/25/24 History Allergies Allergy/AdvReac Type Severity Reaction Status Date / Time No Known Drug Allergies Allergy Verified 10/02/22 08:43 Review of Systems Review of Systems ROS: Yes All systems reviewed with the patient and are negative except as otherwise documented Exam Vital Signs (past 8 hours): - 03/25/24 09:00 03/25/24 12:00 03/25/24 16:00 Temperature 98.4 F 98.9 F 98.4 F Pulse Rate 76 72 88 Respiratory Rate 30 H 28 H 24 Blood Pressure 160/85 H 157/87 H 173/98 H Pulse Oximetry 96 96 96 Oxygen Flow Rate 0 0 0 Oxygen Delivery Method Room Air Oxygen Flow Rate 0 Const General: cooperative Eyes Conjunctivae: conjunctivae normal Sclera: sclerae normal Skin Other: Ulcer on left 3rd met head, approximately 1.5 x 1 x 0.5cm, no warmth, erythema or drainage Objective Labs 03/25/24 08:35 03/25/24 08:35 Labs: Laboratory Results - last 24 hr 03/25/24 03/25/24 00:28 08:35 WBC 11.0 10.1 RBC 3.55 L 3.47 L Hgb 9.7 L 9.6 L Hct 29.5 L 28.9 L MCV 83.1 83.2 MCH 27.4 27.8 MCHC 33.0 33.4 RDW 13.7 13.5 Plt Count 386 366 Neut % (Auto) 52.2 58.1 Lymph % (Auto) 31.[address] [facility] % (Auto) 6.2 7.7 Eos % (Auto) 8.8 H 10.2 H Baso % (Auto) 1.3 1.3 Neut # (Auto) 5800 5900 Lymph # (Auto) [address] [facility] # (Auto) 700 800 Eos # (Auto) 1000 H 1000 H Baso # (Auto) 100 100 ESR 3 Sodium 138 137 Potassium 4.2 4.3 Chloride 107 107 Carbon Dioxide 28 27 BUN 28 H 24 H Creatinine 1.20 H 1.11 H Estimated GFR 55 L > 60 BUN/Creatinine Ratio 23.3 H 21.6 Glucose 180 H 197 H Lactate 0.9 Calcium 9.1 8.8 Total Bilirubin 0.3 AST 19 ALT 13 Alkaline Phosphatase 143 H C-Reactive Protein 3.1 H Total Protein 7.1 Albumin 3.4 L Globulin 3.7 Albumin/Globulin Ratio 0.9 L Procalcitonin 0.077 PFSH Medical History (Updated 03/25/24 @ 16:56 by Nguyen Chang [facility]) Diabetic foot ulcer Psychotic disorder Diabetes Family History Family/Other Stroke Diabetes mellitus Social History marital status: number of children: 2 household members: family Tobacco & Substance Use Smoking Status: Current every day smoker alcohol intake: current Diet and Exercise Type(s) of exercise: walking frequency: decline to answer Assessment & Plan Assessment and plan (1) Diabetic foot ulcer: Qualifiers: Diabetic foot ulcer location: unspecified part of foot Diabetes mellitus type: type 2 Laterality: left Non-pressure ulcer stage: with fat layer exposed Qualified Code(s): E11.621 - Type 2 diabetes mellitus with foot ulcer; L97.522 - Non-pressure chronic ulcer of other part of left foot with fat layer exposed Status: Acute Plan Maryanne is a 48-year-old female who was lost to wound care follow up. -start daily dressing changes with Iodoflex to wound base, cover with bordered foam -avoid placing pressure in this area -plan to establish with wound care upon discharge Time-Based Coding :: [TOTAL MINUTES] spent with patient and on the chart (including review of chart, obtaining history, exam, reviewing outside data, placing orders, documenting exam and treatment plan, and counseling patient) on [DATE].
[2024-03-25] MEDS: CEFEPIME 1 GM in SODIUM CHLORIDE 0.9% 100 ML IV (17:10)
[2024-03-25] MEDS: INSULIN GLARGINE 100 UNIT/ML 3ML PEN 10 UNIT SUBCUT (17:11)
[2024-03-25] MEDS: ATORVASTATIN 20 MG TABLET PO (17:11)
[2024-03-25] MEDS: ACETAMINOPHEN 325 MG TABLET 650 MG PO (17:11)
[2024-03-26] VITALS: BP 178/109; PULSE 73; RESP 24; TEMP 36.6; O2SAT 96
[2024-03-26] MEDS: VANCOMYCIN 1,500 MG/300 ML PIGGYBACK 150 MG IV (02:24)
[2024-03-26] MEDS: ACETAMINOPHEN 325 MG TABLET 650 MG PO ×2 (03:20→10:56)
[2024-03-26 04:10] LABS: MRSA (Nasal) PCR DETECTED (Not Detect)
[2024-03-26] MEDS: CEFEPIME 1 GM in SODIUM CHLORIDE 0.9% 100 ML IV (05:12)
[2024-03-26 06:57] VITALS: BP 168/94; PULSE 69; RESP 18; TEMP 36.6; O2SAT 98
[2024-03-26 08:00] VITALS: BP 129/106; PULSE 75; RESP 18; TEMP 36.9; O2SAT 96
[2024-03-26] MEDS: risperiDONE 1 MG TABLET 2 MG PO (08:23)
[2024-03-26] MEDS: INSULIN LISPRO 100 UNIT/ML 3ML VIAL SUBCUT ×2 (08:23→12:07)
[2024-03-26] MEDS: ENOXAPARIN 40 MG/0.4 ML SYRINGE SUBCUT (08:24)
[2024-03-26] MEDS: cefTRIAXone 2,000 MG in SODIUM CHLORIDE 0.9% 100 ML 200 MG IV (10:52)
[2024-03-26 12:00] VITALS: BP 138/92; PULSE 80; RESP 20; TEMP 36.3; O2SAT 98
--- NOTE | 2024-03-26 12:26 | CM.DPC ---
DCP Continued: Reviewed EMR and team rounds for pt?s medical status. Per Wound consult, pt to follow up with wound care clinic outpatient. Per wound care clinic, pt will have to initiate follow up appointment due to pt's hx of not attending appointments. DCP discussed the above with pt's RN who kindly relayed this to pt and pt's mother. Per RN, no other discharge needs identified and it was reported that pt will be transporting with mother when cleared. Plan: Anticipating discharge home with mother to transport, pt to follow up with wound care clinic for outpatient needs. CM Team will continue to follow for coordination of discharge plans. MAX Stark
--- NOTE | 2024-03-26 12:43 | P.DS_ITS ---
History of Present Illness History of Present Illness Chief complaint: Lt foot and leg swelling Narrative: From night doctor: 48 y/o with PMH of Lt foot diabetic ulcer, presented to ED with swollen LLE and evidence of cellulitis. She stopped going to wound care more then a month ago. In addition, she was not compliant with other home medications. On presentation to ED suspected for sepsis and covered broadly with cefepime and vancomycin. She hgas chronic numbness of both feet related to diabetic neuropathy and currently has mild left foot / lower leg pain. Without chills or fever. Admitted for IV abx with LLE cellulitis. Subjective: The leg is little bit better. Still somewhat swollen. Less red. She was a chronic foot ulcer. No chest pain and dyspnea. Discharge Providers Provider Date of admission: 03/25/24 03:17 Discharge Date: 03/26/24 Primary care physician: Yolande Oenal PA-C Consults: 03/24/24 20:32 Consult to [facility] [place] Manufacturing Accountant Stat Comment: Manufacturing Accountant Consult needed for:: Has no money 03/25/24 06:32 Consult to Dietitian, Adult Routine Comment: Reason For Exam: left plantar diabetic ulcer Consult to Wound Care Routine Comment: Consulting Provider: Opal- Wound Care Discharge provider: Devante Schaffer MD Summary Hospital Course Discharge Diagnosis: 1. Left leg Cellulitis, present on admission and improved. - Cefepime, Vancomycin 2. DM 2, present on admission stable. - long acting insulin, SS, CCD 3. Diabetic Ulcer Lt foot, Diabetic Neuropathy, present on admission and active. - wound care consult 4. Psychotic Disorder, present on admission and active. - Risperidone Hospital Course: She was admitted with left leg cellulitis and treated with IV antibiotics. She received vancomycin and ceftriaxone. A MRSA screen of her nares was positive. The patient has a chronic ulcer on her foot was seen by wound care. They recommended no changes and resumption of wound care in the office. The patient's leg improved with regard to swelling, redness, and pain. She requested discharge on March 26 was felt to be medically stable to do so. Her antibiotic coverage will include doxycycline for MRSA coverage as well as amoxicillin for strep and MSSA. She will take 5 additional days of antibiotics, recommendations to elevate leg and close wound care follow up. She agrees to make an appointment with wound care. Status at Discharge Cognitive/behavioral status at discharge: oriented Functional status at discharge: independent ambulation Overall status at discharge: patient is back to baseline Time Spent with Patient Time spent: Greater than 30 minutes Exam Vital Signs (past 8 hours): - 03/26/24 06:57 03/26/24 08:00 03/26/24 12:00 Temperature 97.9 F 98.4 F 97.3 F L Pulse Rate 69 75 80 Respiratory Rate 18 18 20 Blood Pressure 168/94 H 129/106 H 138/92 H Pulse Oximetry 98 96 98 Oxygen Flow Rate 0 0 0 Oxygen Delivery Method Room Air Oxygen Flow Rate 0 Narrative Exam Narrative: NAD, alert and oriented. Fluent speech. Lungs are clear, normal rate and effort. Heart is regular, no murmur gallop or rub. Abdomen is soft, non distended. Extremities are free of edema. The left leg is still mildly swollen but not red. It is nontender, there is no fluctuance. The foot ulcer is static. There was no redness or drainage around it. Objective Labs 03/25/24 08:35 03/25/24 08:35 Labs: Laboratory Results - last 24 hr 03/26/24 02:20 Nasal Screen MRSA (PCR) Detected [facility] Medical History (Updated 03/25/24 @ 16:56 by Nguyen Chang [facility]) Diabetic foot ulcer Psychotic disorder Diabetes Family History Family/Other Stroke Diabetes mellitus Social History marital status: number of children: 2 household members: family Smoking Status: Current every day smoker alcohol intake: current Type(s) of exercise: walking frequency: decline to answer Discharge Assessment & Plan Assessment and Plan Assessment: 1. Left leg Cellulitis, present on admission and improved. - Cefepime, Vancomycin 2. DM 2, present on admission stable. - long acting insulin, SS, CCD 3. Diabetic Ulcer Lt foot, Diabetic Neuropathy, present on admission and active. - wound care consult 4. Psychotic Disorder, present on admission and active. - Risperidone Plan of Treatment: Discharged with 5 additional days of oral antibiotics, doxycycline 100 b.i.d. and amoxicillin 875 b.i.d.. Follow up with the wound care within the next week. ER for increased redness, pain, swelling, or discharge. Discharge Plan Discharge Plan Patient Disposition: Home Provider Discharge Comment: Stable for discharge home on oral antibiotics, with MRSA coverage, and close wound care follow up. Discharge orders & Medications Prescriptions: New doxycycline hyclate 100 mg capsule 100 mg PO DAILY Qty: 10 0RF amoxicillin 875 mg tablet 875 mg PO BID Qty: 10 0RF Continued atorvastatin 20 mg tablet 20 mg PO QPM risperidone 2 mg tablet 2 mg PO BID trazodone 50 mg tablet 50 mg PO ONCE PM Trulicity 0.75 mg/0.5 mL pen injector 0.75 mg SUBCUT WEEKLY insulin glargine [Lantus Solostar U-100 Insulin] 100 unit/mL (3 mL) insulin pen 10 unit SUBCUT QPM Medication counseling provided by Pharmacist: No Follow up/Referrals: Brennen Ochoa MD [Physician] - Devante Schaffer MD [Physician] - Yolande Oneal PA-C [Primary Care Provider] - Discharge Health Status Multidrug resistant organism: MRSA Diet/Activity/Treatments Diet: Carb-consistent/Diabetic Skin/Wound/Dressing Care Report to your healthcare provider any signs of infection, such as:: chills, fever, increased pain, unusual drainage and unusual redness Visit Report/Discharge Packet Instructions: DI for Cellulitis -- Adult Stand Alone Forms: Patient Portal/API Discharge Data Primary Care Provider: Yolande Oneal Attending Provider: Reji Veliz Admit Date/Time: 03/25/24 03:17
--- NOTE | 2024-04-08 07:16 | PC.NURSE ---
Late Entry: Vancomycin infusion initiated at 0224 complete at 0425. Ceftriaxone infusion initiated at 1052 complete at 1123.
== END 2024-03-26 14:45 | disposition home or self-care (01) ==
LOC: ED 03-25 → AC 03-25 03:18
PROVIDERS: Hospitalist; Admitting Provider Internal Medicine; Emergency Provider Emergency Medicine; PCP Physician Assistant Medical; Referring Provider Emergency Medicine; Visit Provider Internal Medicine
DX: L03.116 Cellulitis of left lower limb (principal); F29 Unspecified psychosis not due to a substance or known physiological condition; E11.621 Type 2 diabetes mellitus with foot ulcer; L97.522 Non-pressure chronic ulcer of other part of left foot with fat layer exposed; F17.210 Nicotine dependence, cigarettes, uncomplicated; Z79.4 Long term (current) use of insulin; Z79.85 Long-term (current) use of injectable non-insulin antidiabetic drugs
CPT/HCPCS: 36415; 73630; 80048; 80053; 82962; 83605; 84145; 85025; 85651; 86140; 87040; 87070; 87077; 87147; 87186; 87205; 87797; 93971; 96365; 96366; 96367; 96372; 99232; 99284; G0378; J0692; J0696; J1650